=== PATIENT | male | born 1975 | race Caucasian/White ===

== ENCOUNTER 2017-05-26 09:00 | Day surgery (SDC) | payer MEDICARE ==
[~2017-05-26 09:00] MED LIST: ATOR10TA70 PO; GABA300C PO; GLIP5POW MC; LANTUS SUBCUT; METF10002 PO; ONDA4TAB9 PO; PIOG15TA8 PO
[2017-05-26] MEDS ORDERED: LIDOcaine 2% 5ml jelly ONE (09:36)
[2017-05-26] MEDS ORDERED: CLIN-80 PO (13:54)
[2017-05-26] MEDS ORDERED: LEVO500T89 PO (13:55)
== END 2017-05-26 10:39 | disposition home or self-care (01) ==
LOC: WOUND CARE 09:00
PROVIDERS: ATTEND Surgery
DX: E11.621 Type 2 diabetes mellitus with foot ulcer (principal); L97.511 Non-pressure chronic ulcer of other part of right foot limited to breakdown of skin; E87.0 Hyperosmolality and hypernatremia; M87.862 Other osteonecrosis, left tibia; L40.9 Psoriasis, unspecified; E11.610 Type 2 diabetes mellitus with diabetic neuropathic arthropathy; E11.42 Type 2 diabetes mellitus with diabetic polyneuropathy; E46 Unspecified protein-calorie malnutrition; Z86.14 Personal history of Methicillin resistant Staphylococcus aureus infection; Z86.19 Personal history of other infectious and parasitic diseases; Z68.26 Body mass index [BMI] 26.0-26.9, adult; Z85.46 Personal history of malignant neoplasm of prostate; Z89.612 Acquired absence of left leg above knee
CPT/HCPCS: 11042; 36416; 73620; 82948; A6021; A6206; L3260

== ENCOUNTER 2017-06-02 08:49 | Day surgery (SDC) | payer MEDICARE ==
[~2017-06-02 08:49] MED LIST changes: +CLIN-80 PO; -LANTUS SUBCUT; +LEVO500T89 PO
[2017-06-02] MEDS ORDERED: LIDOcaine 2% 5ml jelly ONE (09:27)
[2017-06-07] MEDS ORDERED: ACTOS PO (09:56)
[2017-06-07] MEDS ORDERED: METF500T PO (09:56)
[2017-06-07] MEDS ORDERED: ATOR40TA PO (09:56)
[2017-06-07] MEDS ORDERED: INSU100V12 SQ (09:56)
[2017-06-07] MEDS ORDERED: GLIP5TAB13 PO (09:56)
[2017-06-07] MEDS ORDERED: PIOG15TA8 PO (10:42)
== END 2017-06-02 10:16 | disposition home or self-care (01) ==
LOC: WOUND CARE 08:49
PROVIDERS: ATTEND Surgery
DX: E11.621 Type 2 diabetes mellitus with foot ulcer (principal); L97.512 Non-pressure chronic ulcer of other part of right foot with fat layer exposed; E11.69 Type 2 diabetes mellitus with other specified complication; M86.171 Other acute osteomyelitis, right ankle and foot; E11.610 Type 2 diabetes mellitus with diabetic neuropathic arthropathy; E11.42 Type 2 diabetes mellitus with diabetic polyneuropathy; E87.0 Hyperosmolality and hypernatremia; M87.862 Other osteonecrosis, left tibia; L40.9 Psoriasis, unspecified; E46 Unspecified protein-calorie malnutrition; Z86.14 Personal history of Methicillin resistant Staphylococcus aureus infection; Z86.19 Personal history of other infectious and parasitic diseases; Z68.26 Body mass index [BMI] 26.0-26.9, adult; Z85.46 Personal history of malignant neoplasm of prostate; Z89.612 Acquired absence of left leg above knee
CPT/HCPCS: 11042; 36416; 82948; A6021; A6206; A6212; A6222

== ENCOUNTER 2017-06-08 12:34 | Day surgery (SDC) | payer MEDICARE ==
[2017-06-07 10:04] LABS: BASOPHILS % (AUTO) 0.6 % (0-1); EOSINOPHILS # (AUTO) 0.3 X10'3 (0-0.9); EOSINOPHILS % (AUTO) 4.3 % (0-6); LYMPHOCYTES # (AUTO) 1.8 X10'3 (1.1-4.8); LYMPHOCYTES % (AUTO) 24.5 % (21-51); MEAN CORPUSCULAR HEMOGLOBIN 28.7 PG (27.0-31.0); MEAN CORPUSCULAR HGB CONC 34.5 % (33.0-36.5); MEAN PLATELET VOLUME 8.3 FL (7.4-10.4); MONOCYTES # (AUTO) 0.4 X10'3 (0-0.9); MONOCYTES % (AUTO) 5.6 % (2-12); NEUTROPHILS # (AUTO) 4.7 X10'3 (1.8-7.7); PRE OP HEMATOCRIT 35.1 % (42.0-52.0); PRE OP HEMOGLOBIN 12.1 g/dL (14.0-17.9); PRE OP PLATELET COUNT 294 X10'3 (140-440); RED BLOOD COUNT 4.22 X10'6 (4.70-6.10); RED CELL DISTRIBUTION WIDTH 15.1 % (11.5-14.5)
[2017-06-07 10:06] LABS: CLARITY,URINE SLIGHTLY CLOUDY (Clear); COLOR,URINE STRAW (Yellow); GLUCOSE, URINE NEGATIVE (Neg); KETONES,URINE NEGATIVE (Neg); LEUKOCYTE ESTERASE ,URINE NEGATIVE (Neg); NITRITES, URINE NEGATIVE (Neg); OCCULT BLOOD,URINE NEGATIVE (Neg); PROTEIN,URINE NEGATIVE (Neg); UROBILINOGEN,URINE 0.2 E.U/dL (0.2-1.0)
[2017-06-07 10:21] LABS: UA COLLECTION TYPE CLN CATCH MIDSTREAM
[2017-06-07 10:22] LABS: BACTERIA,URINE NONE SEEN /HPF (Neg); MUCUS STRANDS NONE SEEN /LPF (Neg); RBC,URINE NONE SEEN /HPF (0-2); SQUAMOUS EPITHELIAL CELL,UR FEW /LPF (FEW); WBC,URINE 0-4 /HPF (0-4)
[2017-06-07 10:29] LABS: ALBUMIN 3.5 G/DL (3.4-5.0); ALBUMIN/GLOBULIN RATIO 0.8 (1.1-1.5); ALKALINE PHOSPHATASE 102 IU/L (46-116); BLOOD UREA NITROGEN 16 MG/DL (7-18); BUN/CREATININE RATIO 22.9 (5.4-32.0); CHLORIDE 104 MMOL/L (99-107); HEMOGLOBIN A1C 6.4 % (4.5-6.2); PRE OP ALT 25 U/L (30-65); PRE OP ANION GAP 7 (8-16); PRE OP AST 27 U/L (10-37); PRE OP BILIRUB, TOTAL 0.2 MG/DL (0.0-1.0); PRE OP GLUCOSE 112 MG/DL (70-104); PRE OP POTASSIUM 4.1 MMOL/L (3.4-5.1); PRE OP SODIUM 139 MMOL/L (135-145); TOTAL CARBON DIOXIDE 28.1 MMOL/L (24-32); TOTAL PROTEIN 7.8 G/DL (6.4-8.2); eGFR > 90 ML/MIN
[2017-06-08] VITALS (7 sets, daily range): BP systolic 102–121; BP diastolic 67–74
[~2017-06-08] VITALS: Ht 182.9 cm; Wt 106.6 kg
[~2017-06-08 12:34] MED LIST changes: -ATOR10TA70 PO; +ATOR40TA PO; -CLIN-80 PO; +Cefazolin 2GM/100ML NS IVPB IV ONE; -GLIP5POW MC; +GLIP5TAB13 PO; +INSU100V12 SQ; -LEVO500T89 PO; -METF10002 PO; +METF500T PO; -ONDA4TAB9 PO; +famotidine 20mg tablet PO ONE; +ringers solution, lacted 1,000 ML IV SCH
[2017-06-08] MEDS ORDERED: methylene blue (5mg/ml) 50mg/10ml ampul IV ONE (14:20)
[2017-06-08] MEDS ORDERED: povidone-iodine 10% topical ointment 28.4gm TP ONE (14:20)
[2017-06-08] MEDS ORDERED: BUPIVAcaine/PF 2.5 mg/ml (0.25%) 30ml vial ONE (14:20)
[2017-06-08] MEDS ORDERED: midazolam 2 mg/2 ml injection ONE (14:36)
[2017-06-08] MEDS ORDERED: LIDOcaine 1% 30ml preserv. free vial ONE (14:36)
[2017-06-08] MEDS ORDERED: fentaNYL/PF 50MCG/1 ML 2ML syringe ONE ×2 (14:36→15:08)
[2017-06-08] MEDS ORDERED: propofol inj 20 ML IV ONE (14:53)
[2017-06-08] MEDS ORDERED: LIDOcaine 2% (20mg/ml) 5ml vial ONE (14:53)
[2017-06-08] MEDS ORDERED: ringers solution, lacted 1,000 ML IV SCH (15:13)
[2017-06-08] MEDS ORDERED: ondansetron/PF 4mg/2ml inj IV PRN (15:15)
[2017-06-08] MEDS ORDERED: proCHLORperazine 10 MG/2 ml inj IV PRN (15:15)
[2017-06-08] MEDS ORDERED: morphine 4 MG/ML inj SYRINge IV PRN ×2 (15:15)
[2017-06-08] MEDS ORDERED: meperidine/PF 50mg/ml syringe IV PRN ×3 (15:15)
== END 2017-06-08 16:22 | disposition home or self-care (01) ==
LOC: PAS 12:34
PROVIDERS: ATTEND Surgery
DX: E11.52 Type 2 diabetes mellitus with diabetic peripheral angiopathy with gangrene (principal); I96 Gangrene, not elsewhere classified; M19.90 Unspecified osteoarthritis, unspecified site; E11.42 Type 2 diabetes mellitus with diabetic polyneuropathy; L40.8 Other psoriasis; Z86.14 Personal history of Methicillin resistant Staphylococcus aureus infection; Z79.4 Long term (current) use of insulin; Z85.46 Personal history of malignant neoplasm of prostate; Z89.512 Acquired absence of left leg below knee; Z79.84 Long term (current) use of oral hypoglycemic drugs; Z79.899 Other long term (current) drug therapy; Z98.890 Other specified postprocedural states
CPT/HCPCS: 28820; 36415; 80053; 81001; 82948; 83036; 85025; 93005; A6222; A6446; A6449; J0690; J2001; J2250; J2704; J3010; J3490; J7120; 88305; A7000

== ENCOUNTER 2017-06-16 08:15 | Outpatient (CLI) | payer MEDICARE ==
[~2017-06-16 08:15] MED LIST changes: -Cefazolin 2GM/100ML NS IVPB IV ONE; -famotidine 20mg tablet PO ONE; -ringers solution, lacted 1,000 ML IV SCH
== END 2017-06-16 09:57 | disposition home or self-care (01) ==
LOC: WOUND CARE 08:15 → EDSTATUS 08:30 → WOUND CARE 09:57
PROVIDERS: ATTEND Surgery
DX: T81.89XD Other complications of procedures, not elsewhere classified, subsequent encounter (principal); E11.621 Type 2 diabetes mellitus with foot ulcer; L97.512 Non-pressure chronic ulcer of other part of right foot with fat layer exposed; E11.69 Type 2 diabetes mellitus with other specified complication; M86.171 Other acute osteomyelitis, right ankle and foot; E11.610 Type 2 diabetes mellitus with diabetic neuropathic arthropathy; E11.42 Type 2 diabetes mellitus with diabetic polyneuropathy; E87.0 Hyperosmolality and hypernatremia; M87.862 Other osteonecrosis, left tibia; L40.9 Psoriasis, unspecified; E46 Unspecified protein-calorie malnutrition; Z86.14 Personal history of Methicillin resistant Staphylococcus aureus infection; Z86.19 Personal history of other infectious and parasitic diseases; Z68.26 Body mass index [BMI] 26.0-26.9, adult; Z85.46 Personal history of malignant neoplasm of prostate; Z89.612 Acquired absence of left leg above knee; Y83.8 Other surgical procedures as the cause of abnormal reaction of the patient, or of later complication, without mention of misadventure at the time of the procedure
CPT/HCPCS: 36416; 82948; 99215; A6250

== ENCOUNTER 2017-06-23 08:15 | Outpatient (CLI) | payer MEDICARE ==
[2017-06-23] MEDS ORDERED: LIDOcaine 2% 5ml jelly ONE (09:45)
== END 2017-06-23 10:08 | disposition home or self-care (01) ==
LOC: WOUND CARE 08:15 → EDSTATUS 08:30 → WOUND CARE 10:08
PROVIDERS: ATTEND Surgery
DX: T81.89XD Other complications of procedures, not elsewhere classified, subsequent encounter (principal); E11.621 Type 2 diabetes mellitus with foot ulcer; L97.512 Non-pressure chronic ulcer of other part of right foot with fat layer exposed; E11.69 Type 2 diabetes mellitus with other specified complication; M86.171 Other acute osteomyelitis, right ankle and foot; E11.610 Type 2 diabetes mellitus with diabetic neuropathic arthropathy; E11.42 Type 2 diabetes mellitus with diabetic polyneuropathy; E11.65 Type 2 diabetes mellitus with hyperglycemia; E87.0 Hyperosmolality and hypernatremia; M87.862 Other osteonecrosis, left tibia; L40.9 Psoriasis, unspecified; E46 Unspecified protein-calorie malnutrition; Z86.14 Personal history of Methicillin resistant Staphylococcus aureus infection; Z86.19 Personal history of other infectious and parasitic diseases; Z68.26 Body mass index [BMI] 26.0-26.9, adult; Z85.46 Personal history of malignant neoplasm of prostate; Z89.612 Acquired absence of left leg above knee; Y83.8 Other surgical procedures as the cause of abnormal reaction of the patient, or of later complication, without mention of misadventure at the time of the procedure
CPT/HCPCS: 36416; 82948; 99215; A6250

== ENCOUNTER 2017-06-30 08:31 | Outpatient (CLI) | payer MEDICARE ==
[2017-06-30] MEDS ORDERED: mupirocin 2% ointment 22GM ONE (10:11)
== END 2017-06-30 10:18 | disposition home or self-care (01) ==
LOC: WOUND CARE 08:31
PROVIDERS: ATTEND Surgery
DX: T81.89XD Other complications of procedures, not elsewhere classified, subsequent encounter (principal); E11.621 Type 2 diabetes mellitus with foot ulcer; L97.512 Non-pressure chronic ulcer of other part of right foot with fat layer exposed; E11.69 Type 2 diabetes mellitus with other specified complication; M86.171 Other acute osteomyelitis, right ankle and foot; E11.610 Type 2 diabetes mellitus with diabetic neuropathic arthropathy; E11.42 Type 2 diabetes mellitus with diabetic polyneuropathy; E11.65 Type 2 diabetes mellitus with hyperglycemia; E87.0 Hyperosmolality and hypernatremia; M87.862 Other osteonecrosis, left tibia; L40.9 Psoriasis, unspecified; E46 Unspecified protein-calorie malnutrition; Z86.14 Personal history of Methicillin resistant Staphylococcus aureus infection; Z86.19 Personal history of other infectious and parasitic diseases; Z68.26 Body mass index [BMI] 26.0-26.9, adult; Z85.46 Personal history of malignant neoplasm of prostate; Y83.8 Other surgical procedures as the cause of abnormal reaction of the patient, or of later complication, without mention of misadventure at the time of the procedure
CPT/HCPCS: 36416; 82948; 99214

== ENCOUNTER 2017-08-31 08:07 | Outpatient (CLI) | payer MEDICARE | END 2017-08-31 10:12 | disposition home or self-care (01) | LOC: WOUND CARE 08:07 → EDSTATUS 08:30 → WOUND CARE 10:12 | PROVIDERS: ATTEND Surgery | DX: T81.89XD Other complications of procedures, not elsewhere classified, subsequent encounter (principal); E11.621 Type 2 diabetes mellitus with foot ulcer; L97.511 Non-pressure chronic ulcer of other part of right foot limited to breakdown of skin; E11.69 Type 2 diabetes mellitus with other specified complication; M86.171 Other acute osteomyelitis, right ankle and foot; E11.610 Type 2 diabetes mellitus with diabetic neuropathic arthropathy; E11.42 Type 2 diabetes mellitus with diabetic polyneuropathy; E11.65 Type 2 diabetes mellitus with hyperglycemia; E87.0 Hyperosmolality and hypernatremia; M87.862 Other osteonecrosis, left tibia; L40.9 Psoriasis, unspecified; E46 Unspecified protein-calorie malnutrition; Z86.14 Personal history of Methicillin resistant Staphylococcus aureus infection; Z86.19 Personal history of other infectious and parasitic diseases; Z68.26 Body mass index [BMI] 26.0-26.9, adult; Z85.46 Personal history of malignant neoplasm of prostate; Y83.8 Other surgical procedures as the cause of abnormal reaction of the patient, or of later complication, without mention of misadventure at the time of the procedure | CPT/HCPCS: 82948; 99215 ==

== ENCOUNTER 2022-02-27 13:59 | Outpatient (CLI) | payer MEDICARE ==
[2022-02-27 15:21] LABS: BASOPHILS # (AUTO) 0.1 X10'3 (0-0.2); BASOPHILS % (AUTO) 1.4 % (0-1); EOSINOPHILS # (AUTO) 0.1 X10'3 (0-0.9); EOSINOPHILS % (AUTO) 1.7 % (0-6); LYMPHOCYTES # (AUTO) 1.2 X10'3 (1.1-4.8); LYMPHOCYTES % (AUTO) 20.6 % (21-51); MEAN CORPUSCULAR HEMOGLOBIN 28.9 PG (27.0-31.0); MEAN CORPUSCULAR HGB CONC 34.1 g/dL (33.0-36.5); MEAN CORPUSCULAR VOLUME 84.7 FL (78-98); MEAN PLATELET VOLUME 9.7 FL (7.4-10.4); MONOCYTES # (AUTO) 0.3 X10'3 (0-0.9); MONOCYTES % (AUTO) 5.6 % (2-12); NEUTROPHILS # (AUTO) 4.2 X10'3 (1.8-7.7); NEUTROPHILS % (AUTO) 70.7 % (42-75); PRE OP HEMATOCRIT 39.3 % (42.0-52.0); PRE OP HEMOGLOBIN 13.4 g/dL (14.0-17.9); PRE OP PLATELET COUNT 249 X10'3 (140-440); RED BLOOD COUNT 4.64 X10'6 (4.70-6.10); RED CELL DISTRIBUTION WIDTH 13.7 % (11.5-14.5)
[2022-02-27 15:40] LABS: ALBUMIN/GLOBULIN RATIO 0.7 (1.1-1.5); ALKALINE PHOSPHATASE 115 IU/L (46-116); BLOOD UREA NITROGEN 21 MG/DL (7-18); BUN/CREATININE RATIO 14.7 (5.4-32.0); CALCIUM 8.9 MG/DL (8.5-10.1); CHLORIDE 94 MMOL/L (99-107); CREATININE 1.43 MG/DL (0.60-1.10); PRE OP ALT 23 U/L (30-65); PRE OP ANION GAP 4 (8-16); PRE OP AST 28 U/L (10-37); PRE OP BILIRUB, TOTAL 0.3 MG/DL (0.0-1.0); PRE OP POTASSIUM 4.5 MMOL/L (3.4-5.1); TOTAL PROTEIN 7.1 G/DL (6.4-8.2); eGFR 53 ML/MIN
[2022-02-27 15:52] LABS: PRE OP GLUCOSE 796 MG/DL (70-104); PRE OP SODIUM 129 MMOL/L (135-145)
[2022-02-27] MEDS ORDERED: ATOR80TA PO (16:08)
[2022-02-27] MEDS ORDERED: EMPA10TA PO (16:08)
[2022-02-27] MEDS ORDERED: VITAMIN D (16:08)
[2022-02-27] MEDS ORDERED: INSU100V12 SQ (16:08)
[2022-02-27] MEDS ORDERED: IRON (16:08)
[2022-02-27] MEDS ORDERED: INSU100V11 SQ (16:08)
[2022-02-27] MEDS ORDERED: METF-438 PO (16:08)
== END 2022-02-27 23:59 | disposition home or self-care (01) ==
LOC: LAB 13:59 → EDSTATUS 03-03 07:30
PROVIDERS: ATTEND Orthopaedic Surgery Orthopaedic Trauma
DX: Z01.818 Encounter for other preprocedural examination (principal); R22.42 Localized swelling, mass and lump, left lower limb
CPT/HCPCS: 36415; 71046; 80053; 83036; 85025; 85610; 93005

== ENCOUNTER 2023-03-17 16:40 | Inpatient (IN) | payer MEDICARE, MEDICAID ==
[~2023-03-17] VITALS: Ht 172.7 cm; Wt 81.8 kg
[~2023-03-17 16:40] MED LIST changes: -ATOR40TA PO; +ATOR80TA PO; +EMPA10TA PO; -GABA300C PO; -GLIP5TAB13 PO; +INSU100V11 SQ; +IRON; +METF-438 PO; -METF500T PO; -PIOG15TA8 PO; +VITAMIN D
[2023-03-17 17:57] LABS: BASOPHILS % (AUTO) 0.5 % (0-1); EOSINOPHILS # (AUTO) 0.1 X10'3 (0-0.9); EOSINOPHILS % (AUTO) 1.2 % (0-6); HEMATOCRIT 36.3 % (42.0-52.0); HEMOGLOBIN 12.1 g/dl (14.0-17.9); LYMPHOCYTES # (AUTO) 0.9 X10'3 (1.1-4.8); MEAN CORPUSCULAR HEMOGLOBIN 28.4 PG (27.0-31.0); MEAN CORPUSCULAR HGB CONC 33.3 g/dL (33.0-36.5); MEAN CORPUSCULAR VOLUME 85.3 FL (78-98); MONOCYTES # (AUTO) 0.5 X10'3 (0-0.9); MONOCYTES % (AUTO) 5.6 % (2-12); NEUTROPHILS # (AUTO) 7.3 X10'3 (1.8-7.7); NEUTROPHILS % (AUTO) 82.7 % (42-75); PLATELET COUNT 391 X10'3 (140-440); RED BLOOD COUNT 4.25 X10'6 (4.70-6.10); RED CELL DISTRIBUTION WIDTH 12.9 % (11.5-14.5); WHITE BLOOD COUNT 8.8 X10'3 (4.5-11.0)
[2023-03-17 18:17] LABS: ALBUMIN 1.9 G/DL (3.4-5.0); ANION GAP 8 (8-16); BLOOD UREA NITROGEN 15 MG/DL (7-18); BUN/CREATININE RATIO 12.7 (10.0-20.0); CALCIUM 8.7 MG/DL (8.5-10.1); CHLORIDE 94 MMOL/L (99-107); CREATININE 1.18 MG/DL (0.60-1.10); POTASSIUM 4.1 MMOL/L (3.5-5.1); SODIUM 133 MMOL/L (135-145); TOTAL CARBON DIOXIDE 30.8 MMOL/L (24-32); eCRCL 75 ML/MIN; eGFR 66 ML/MIN
[2023-03-17 18:26] LABS: GLUCOSE 658 MG/DL (70-104)
[2023-03-17] MEDS ORDERED: iohexol 300mg/ml 100ml inj. ONE (22:37)
[2023-03-17] MEDS ORDERED: dextrose 50%-water 50ml dispensing syringe IV PRN ×2 (23:00)
[2023-03-17] MEDS ORDERED: potassium Cl 40MEQ/1/2NS 520ml 520 ML IV PRN (23:00)
[2023-03-17] MEDS ORDERED: potassium Cl 20 mEq SR tablet PO PRN ×2 (23:00)
[2023-03-17] MEDS ORDERED: acetaminophen 325mg tablet PO PRN (23:00)
[2023-03-17] MEDS ORDERED: morphine 2 MG/ML inj. syringe IV PRN ×2 (23:00)
[2023-03-17] MEDS ORDERED: HYDROcodone/acetaminophen 5mg/325mg tablet PO PRN (23:00)
[2023-03-17] MEDS ORDERED: magnesium 2GM in 50ml NS 50 ML IV PRN (23:00)
[2023-03-17] MEDS ORDERED: magnesium 4gm in 100ml NS 100 ML IV PRN (23:00)
[2023-03-17] MEDS ORDERED: glucagon, human recombinant 1mg kit SUBCUT PRN (23:00)
[2023-03-17] MEDS ORDERED: DEXTROSE 15 GM of carb/4 tabs (each vial/BOTTLE has 4 tablets) PO PRN (23:00)
[2023-03-17] MEDS ORDERED: magnesium Cl slow-release 64mg tablet PO PRN (23:00)
[2023-03-17] MEDS ORDERED: mag hydrox/Alum hydrox/simeth 30ml oral suspension PO PRN (23:00)
[2023-03-17] MEDS: normal saline 1000ML IV soln IVB ONE (23:11)
[2023-03-17] MEDS: piperacillin/tazo 3.375gm/50ml 50 ML IV ONE (23:11)
[2023-03-17] MEDS: insulin regular, human 10 units/0.1 ml syringe IV ONE (23:14)
[2023-03-17] MEDS: MESSAGE TO PHARMACY PO ONE (23:14)
[2023-03-17] MEDS: vancomycin/NS 1 GM ADD-VANTAGE 250 ML IV ONE (23:41)
[2023-03-18] MEDS: normal saline 1000ml 1,000 ML IV SCH (01:20)
[2023-03-18] MEDS: insulin regular, human 10 units/0.1 ml syringe IV ONE (01:30)
[2023-03-18] MEDS: TETanus/Pertussis (Acell)/Diphther VAC/PF (Tdap-Adult) 0.5ml syringe IMVAC ONE (01:35)
[2023-03-18 02:43] LABS: D-DIMER 1.02 MG/L FEU (0-0.50)
[2023-03-18] MEDS: piperacillin/tazo 3.375gm/50ml 50 ML IV SCH (03:28)
[2023-03-18 06:25] LABS: BILIRUBIN,URINE NEGATIVE (Neg); CLARITY,URINE CLEAR (Clear); COLOR,URINE YELLOW (Yellow); GLUCOSE, URINE >=1000 mg/dl (Neg); KETONES,URINE TRACE mg/dl (Neg); LEUKOCYTE ESTERASE ,URINE NEGATIVE (Neg); NITRITES, URINE NEGATIVE (Neg); OCCULT BLOOD,URINE MODERATE (Neg); PROTEIN,URINE >=300 mg/dl (Neg)
[2023-03-18 06:38] LABS: UA COLLECTION TYPE CLN CATCH MIDSTREAM
[2023-03-18 06:43] LABS: BACTERIA,URINE FEW /HPF (Neg); COARSE GRANULAR CAST 0-3 /LPF (NEGATIVE); WBC,URINE 0-4 /HPF (0-4)
[2023-03-18 06:47] LABS: SQUAMOUS EPITHELIAL CELL,UR FEW /LPF (FEW); TRANSITIONAL EPI CELLS,URINE FEW /HPF
[2023-03-18 07:58] LABS: BASOPHILS # (AUTO) 0.1 X10'3 (0-0.2); BASOPHILS % (AUTO) 1.1 % (0-1); EOSINOPHILS # (AUTO) 0.1 X10'3 (0-0.9); EOSINOPHILS % (AUTO) 1.2 % (0-6); HEMATOCRIT 24.6 % (42.0-52.0); HEMOGLOBIN 8.2 g/dl (14.0-17.9); LYMPHOCYTES # (AUTO) 1.1 X10'3 (1.1-4.8); LYMPHOCYTES % (AUTO) 17.5 % (21-51); MEAN CORPUSCULAR HEMOGLOBIN 28.2 PG (27.0-31.0); MEAN CORPUSCULAR HGB CONC 33.5 g/dL (33.0-36.5); MEAN CORPUSCULAR VOLUME 84.2 FL (78-98); MONOCYTES # (AUTO) 0.5 X10'3 (0-0.9); MONOCYTES % (AUTO) 7.5 % (2-12); NEUTROPHILS # (AUTO) 4.4 X10'3 (1.8-7.7); NEUTROPHILS % (AUTO) 72.7 % (42-75); PLATELET COUNT 250 X10'3 (140-440); RED BLOOD COUNT 2.92 X10'6 (4.70-6.10); WHITE BLOOD COUNT 6.1 X10'3 (4.5-11.0)
[2023-03-18] MEDS: K and/or MAG REPLACEMENT MC SCH (08:00)
[2023-03-18 08:25] LABS: ALANINE AMINOTRANSFERASE 15 U/L (12-78); ALBUMIN 1.3 G/DL (3.4-5.0); ALBUMIN/GLOBULIN RATIO 0.3 (1.1-1.5); ALKALINE PHOSPHATASE 75 IU/L (46-116); ANION GAP 7 (8-16); ASPARTATE AMINO TRANSFERASE 19 U/L (10-37); BILIRUBIN,TOTAL 0.3 MG/DL (0.1-1.0); BLOOD UREA NITROGEN 12 MG/DL (7-18); BUN/CREATININE RATIO 15.8 (10.0-20.0); C-REACTIVE PROTEIN 9.05 MG/DL (0.0-0.5); CALCIUM 7.1 MG/DL (8.5-10.1); CHLORIDE 109 MMOL/L (99-107); CREATININE 0.76 MG/DL (0.60-1.10); GLUCOSE 233 MG/DL (70-104); MAGNESIUM 1.6 MG/DL (1.5-2.4); POTASSIUM 3.4 MMOL/L (3.5-5.1); SODIUM 144 MMOL/L (135-145); TOTAL CARBON DIOXIDE 28.4 MMOL/L (24-32); TOTAL PROTEIN 5.5 G/DL (6.4-8.2); eCRCL 116 ML/MIN; eGFR > 90 ML/MIN
[2023-03-18] MEDS: heparin, porcine 5000 units/ml vial SQ SCH (08:27)
[2023-03-18] MEDS: vancomycin/NS 1 GM ADD-VANTAGE 250 ML IV SCH (08:27)
[2023-03-18] MEDS: pantoprazole 40mg Tablet.DR PO SCH (08:28)
[2023-03-18 10:31] LABS: HEMOGLOBIN A1C > 12.0 % (4.5-6.2)
[2023-03-18] MEDS ORDERED: glucagon, human recombinant 1mg kit SUBCUT PRN (13:10)
[2023-03-18] MEDS ORDERED: dextrose 50%-water 50ml dispensing syringe IV PRN ×2 (13:10)
[2023-03-18] MEDS ORDERED: DEXTROSE 15 GM of carb/4 tabs (each vial/BOTTLE has 4 tablets) PO PRN ×2 (13:10)
[2023-03-18] MEDS: HYDROcodone/acetaminophen 10/325mg tab PO PRN (13:28)
[2023-03-18] MEDS: MESSAGE TO PHARMACY PO ONE (13:43)
[2023-03-18] MEDS: insulin Lispro (HumaLOG) vial - multi-dose SQ SCH ×2 (14:27→20:28)
[2023-03-18] MEDS: atorvastatin 20mg tablet PO SCH (20:39)
[2023-03-18] MEDS ORDERED: insulin glargine (Lantus) pen - multi-dose SQ SCH ×2 (21:00)
[2023-03-18] MEDS: insulin glargine (Lantus) pen - multi-dose SQ SCH (22:51)
[2023-03-19 06:34] LABS: BASOPHILS # (AUTO) 0.1 X10'3 (0-0.2); BASOPHILS % (AUTO) 1.2 % (0-1); EOSINOPHILS # (AUTO) 0.1 X10'3 (0-0.9); HEMATOCRIT 28.2 % (42.0-52.0); HEMOGLOBIN 9.6 g/dl (14.0-17.9); LYMPHOCYTES # (AUTO) 0.7 X10'3 (1.1-4.8); LYMPHOCYTES % (AUTO) 14.6 % (21-51); MEAN CORPUSCULAR HEMOGLOBIN 28.3 PG (27.0-31.0); MEAN CORPUSCULAR HGB CONC 33.9 g/dL (33.0-36.5); MEAN CORPUSCULAR VOLUME 83.6 FL (78-98); MEAN PLATELET VOLUME 9.3 FL (7.4-10.4); MONOCYTES # (AUTO) 0.3 X10'3 (0-0.9); MONOCYTES % (AUTO) 6.5 % (2-12); NEUTROPHILS # (AUTO) 3.9 X10'3 (1.8-7.7); NEUTROPHILS % (AUTO) 75.7 % (42-75); PLATELET COUNT 294 X10'3 (140-440); RED BLOOD COUNT 3.38 X10'6 (4.70-6.10); RED CELL DISTRIBUTION WIDTH 12.8 % (11.5-14.5); WHITE BLOOD COUNT 5.1 X10'3 (4.5-11.0)
[2023-03-19] MEDS: VANCOMYCIN LEVEL IV ONE (07:55)
[2023-03-19 08:30] LABS: ALANINE AMINOTRANSFERASE 33 U/L (12-78); ALBUMIN 1.4 G/DL (3.4-5.0); ALBUMIN/GLOBULIN RATIO 0.3 (1.1-1.5); ALKALINE PHOSPHATASE 79 IU/L (46-116); ANION GAP 8 (8-16); ASPARTATE AMINO TRANSFERASE 22 U/L (10-37); BILIRUBIN,TOTAL 0.4 MG/DL (0.1-1.0); BLOOD UREA NITROGEN 14 MG/DL (7-18); BUN/CREATININE RATIO 15.7 (10.0-20.0); CALCIUM 7.4 MG/DL (8.5-10.1); CHLORIDE 102 MMOL/L (99-107); CREATININE 0.89 MG/DL (0.60-1.10); GLUCOSE 208 MG/DL (70-104); POTASSIUM 3.8 MMOL/L (3.5-5.1); SODIUM 137 MMOL/L (135-145); TOTAL CARBON DIOXIDE 27.3 MMOL/L (24-32); TOTAL PROTEIN 5.9 G/DL (6.4-8.2); eCRCL 99 ML/MIN; eGFR > 90 ML/MIN
[2023-03-19 08:32] LABS: CHOL/HDL RATIO 5.9 (0.00-4.99); CHOLESTEROL 190 MG/DL (0-200); HDL CHOLESTEROL 32 MG/DL (35-60); MAGNESIUM 1.6 MG/DL (1.5-2.4); TRIGLYCERIDES 105 MG/DL (20-135); VANCOMYCIN,TROUGH 14.2 ug/mL (10.0-20.0)
[2023-03-19 08:38] LABS: LDL CHOLESTEROL 124 MG/DL (50-100)
[2023-03-19 10:00] VITALS: RESP 16
[2023-03-19 11:00] VITALS: BP 144/84; PULSE 110; RESP 34; TEMP 98.7; O2SAT 96
[2023-03-19 15:04] VITALS: BP 128/69; PULSE 113; RESP 30; TEMP 100.1; O2SAT 95
[2023-03-19 18:00] VITALS: BP 142/75; PULSE 113; RESP 20; TEMP 98.7; O2SAT 96
[2023-03-19] MEDS: VANCOmycin 1250MG/NS 250ml Bag 250 ML IV SCH (19:14)
[2023-03-19] MEDS: guaiFENesin/DM 10ml UD oral syrup PO PRN (20:05)
[2023-03-19 22:00] VITALS: BP 148/82; PULSE 123; RESP 22; TEMP 97.9; O2SAT 96
[2023-03-19] MEDS: ondansetron/PF 4mg/2ml inj IV PRN (23:45)
[2023-03-20] VITALS (7 sets, daily range): BP systolic 122–140; BP diastolic 58–73; PULSE 60–118; RESP 16–32; TEMP 97.3–99.6; O2SAT 92–98
[2023-03-20 07:09] LABS: BASOPHILS % (AUTO) 0.7 % (0-1); EOSINOPHILS % (AUTO) 0.6 % (0-6); HEMATOCRIT 27.2 % (42.0-52.0); HEMOGLOBIN 9.3 g/dl (14.0-17.9); LYMPHOCYTES # (AUTO) 0.6 X10'3 (1.1-4.8); LYMPHOCYTES % (AUTO) 10.3 % (21-51); MEAN CORPUSCULAR HEMOGLOBIN 28.6 PG (27.0-31.0); MEAN CORPUSCULAR HGB CONC 34.1 g/dL (33.0-36.5); MEAN CORPUSCULAR VOLUME 83.8 FL (78-98); MEAN PLATELET VOLUME 8.9 FL (7.4-10.4); MONOCYTES # (AUTO) 0.5 X10'3 (0-0.9); MONOCYTES % (AUTO) 8.2 % (2-12); NEUTROPHILS # (AUTO) 4.8 X10'3 (1.8-7.7); NEUTROPHILS % (AUTO) 80.2 % (42-75); PLATELET COUNT 252 X10'3 (140-440); RED BLOOD COUNT 3.25 X10'6 (4.70-6.10); RED CELL DISTRIBUTION WIDTH 12.9 % (11.5-14.5)
[2023-03-20 07:48] LABS: ALANINE AMINOTRANSFERASE 20 U/L (12-78); ALBUMIN 1.3 G/DL (3.4-5.0); ALBUMIN/GLOBULIN RATIO 0.3 (1.1-1.5); ALKALINE PHOSPHATASE 89 IU/L (46-116); ANION GAP 8 (8-16); ASPARTATE AMINO TRANSFERASE 31 U/L (10-37); BILIRUBIN,TOTAL 0.3 MG/DL (0.1-1.0); BLOOD UREA NITROGEN 13 MG/DL (7-18); CALCIUM 7.1 MG/DL (8.5-10.1); CHLORIDE 100 MMOL/L (99-107); GLUCOSE 259 MG/DL (70-104); MAGNESIUM 1.6 MG/DL (1.5-2.4); SODIUM 136 MMOL/L (135-145); TOTAL CARBON DIOXIDE 27.7 MMOL/L (24-32); eCRCL 88 ML/MIN; eGFR 80 ML/MIN
[2023-03-20] MEDS: azithromycin 250mg tablet PO SCH (11:51)
[2023-03-20] MEDS: DEXTROSE 15 GM of carb/4 tabs (each vial/BOTTLE has 4 tablets) PO PRN (17:26)
[2023-03-20] MEDS: magnesium hydroxide 30ml (MOM) UD suspension PO PRN (17:28)
[2023-03-21 02:00] VITALS: BP 111/60; PULSE 66; RESP 18; TEMP 97.8; O2SAT 92
[2023-03-21 06:00] VITALS: BP 131/85; PULSE 106; RESP 20; TEMP 98; O2SAT 93
[2023-03-21 06:40] LABS: BASOPHILS % (AUTO) 0.9 % (0-1); EOSINOPHILS # (AUTO) 0.1 X10'3 (0-0.9); EOSINOPHILS % (AUTO) 1.6 % (0-6); HEMATOCRIT 26.5 % (42.0-52.0); LYMPHOCYTES # (AUTO) 0.8 X10'3 (1.1-4.8); LYMPHOCYTES % (AUTO) 16.5 % (21-51); MEAN CORPUSCULAR HEMOGLOBIN 28.3 PG (27.0-31.0); MEAN CORPUSCULAR VOLUME 83.1 FL (78-98); MEAN PLATELET VOLUME 9.5 FL (7.4-10.4); MONOCYTES # (AUTO) 0.5 X10'3 (0-0.9); NEUTROPHILS # (AUTO) 3.4 X10'3 (1.8-7.7); PLATELET COUNT 248 X10'3 (140-440); RED BLOOD COUNT 3.18 X10'6 (4.70-6.10); RED CELL DISTRIBUTION WIDTH 12.9 % (11.5-14.5); WHITE BLOOD COUNT 4.9 X10'3 (4.5-11.0)
[2023-03-21] MEDS: MESSAGE TO PHARMACY PO ONE ×2 (07:28→18:01)
[2023-03-21] MEDS: VANCOMYCIN LEVEL IV ONE (07:47)
[2023-03-21 08:19] LABS: ALANINE AMINOTRANSFERASE 24 U/L (12-78); ALBUMIN 1.8 G/DL (3.4-5.0); ALBUMIN/GLOBULIN RATIO 0.4 (1.1-1.5); ALKALINE PHOSPHATASE 99 IU/L (46-116); ANION GAP -1 (8-16); ASPARTATE AMINO TRANSFERASE 39 U/L (10-37); BILIRUBIN,TOTAL 0.2 MG/DL (0.1-1.0); BLOOD UREA NITROGEN 20 MG/DL (7-18); BUN/CREATININE RATIO 17.2 (10.0-20.0); CALCIUM 8.2 MG/DL (8.5-10.1); CHLORIDE 105 MMOL/L (99-107); CREATININE 1.16 MG/DL (0.60-1.10); GLUCOSE 253 MG/DL (70-104); MAGNESIUM 2.4 MG/DL (1.5-2.4); POTASSIUM 3.8 MMOL/L (3.5-5.1); SODIUM 141 MMOL/L (135-145); TOTAL CARBON DIOXIDE 37.2 MMOL/L (24-32); TOTAL PROTEIN 6.6 G/DL (6.4-8.2); VANCOMYCIN,TROUGH 23.2 ug/mL (10.0-20.0); eCRCL 76 ML/MIN; eGFR 67 ML/MIN
[2023-03-21 13:10] VITALS: BP 124/57; PULSE 109; RESP 24; TEMP 99.5; O2SAT 95
[2023-03-21] MEDS: normal saline 1000ml 1,000 ML IV ONE (14:25)
[2023-03-21] MEDS: normal saline 1000ml 1,000 ML IV SCH (14:25)
[2023-03-21] MEDS ORDERED: iohexol 350MG/ML 100ml bottle IV ONE (14:50)
[2023-03-21 18:00] VITALS: BP 159/66; PULSE 73; RESP 20; TEMP 99.4; O2SAT 98
[2023-03-21] MEDS: vancomycin/NS 1 GM ADD-VANTAGE 250 ML IV SCH (19:19)
[2023-03-21 22:00] VITALS: BP 133/66; PULSE 101; RESP 21; TEMP 98.4; O2SAT 97
[2023-03-22] VITALS (7 sets, daily range): BP systolic 109–162; BP diastolic 67–101; PULSE 56–115; RESP 12–22; TEMP 97.7–100.9; O2SAT 91–96
[2023-03-22] MEDS: dexamethasone 4mg tablet PO SCH (16:12)
[2023-03-22 17:10] LABS: HEMOGLOBIN 9.7 g/dl (14.0-17.9)
[2023-03-22 17:11] LABS: BASOPHILS % (AUTO) 0.7 % (0-1); EOSINOPHILS % (AUTO) 0.4 % (0-6); HEMATOCRIT 28.5 % (42.0-52.0); LYMPHOCYTES # (AUTO) 0.8 X10'3 (1.1-4.8); MEAN CORPUSCULAR HEMOGLOBIN 28.5 PG (27.0-31.0); MEAN CORPUSCULAR VOLUME 83.9 FL (78-98); MEAN PLATELET VOLUME 9.2 FL (7.4-10.4); MONOCYTES # (AUTO) 0.4 X10'3 (0-0.9); MONOCYTES % (AUTO) 8.6 % (2-12); NEUTROPHILS # (AUTO) 3.6 X10'3 (1.8-7.7); NEUTROPHILS % (AUTO) 74.3 % (42-75); PLATELET COUNT 282 X10'3 (140-440); RED CELL DISTRIBUTION WIDTH 13.2 % (11.5-14.5); WHITE BLOOD COUNT 4.8 X10'3 (4.5-11.0)
[2023-03-22 17:18] LABS: D-DIMER 1.35 MG/L FEU (0-0.50)
[2023-03-22 17:22] LABS: ALANINE AMINOTRANSFERASE 25 U/L (12-78); ALBUMIN 1.3 G/DL (3.4-5.0); ALBUMIN/GLOBULIN RATIO 0.3 (1.1-1.5); ALKALINE PHOSPHATASE 90 IU/L (46-116); ANION GAP 6 (8-16); ASPARTATE AMINO TRANSFERASE 48 U/L (10-37); BILIRUBIN,TOTAL 0.4 MG/DL (0.1-1.0); BLOOD UREA NITROGEN 19 MG/DL (7-18); BUN/CREATININE RATIO 10.3 (10.0-20.0); CALCIUM 7.4 MG/DL (8.5-10.1); CHLORIDE 104 MMOL/L (99-107); CREATININE 1.84 MG/DL (0.60-1.10); GLUCOSE 107 MG/DL (70-104); SODIUM 140 MMOL/L (135-145); TOTAL CARBON DIOXIDE 29.6 MMOL/L (24-32); TOTAL PROTEIN 6.3 G/DL (6.4-8.2); eCRCL 48 ML/MIN; eGFR 40 ML/MIN
[2023-03-23] VITALS (8 sets, daily range): BP systolic 139–153; BP diastolic 91–98; PULSE 64–120; RESP 16–24; TEMP 97.5–98.9; O2SAT 93–99
[2023-03-23 07:51] LABS: D-DIMER 1.37 MG/L FEU (0-0.50)
[2023-03-23] MEDS: VANCOMYCIN LEVEL IV ONE (07:51)
[2023-03-23 07:56] LABS: C-REACTIVE PROTEIN 10.12 MG/DL (0.0-0.5); LACTATE DEHYDROGENASE 267 U/L (85-227)
[2023-03-23 08:55] LABS: VANCOMYCIN,TROUGH 41.3 ug/mL (10.0-20.0)
[2023-03-23] MEDS ORDERED: VANCOMYCIN 750MG IV in NS 250 ML IV SCH (09:00)
[2023-03-23] MEDS: DEXAMETHASONE 6 MG TABLET PO SCH (09:51)
[2023-03-23 10:39] LABS: ALBUMIN 1.3 G/DL (3.4-5.0); ANION GAP 14 (8-16); BLOOD UREA NITROGEN 28 MG/DL (7-18); BUN/CREATININE RATIO 12.9 (10.0-20.0); CALCIUM 7.4 MG/DL (8.5-10.1); CHLORIDE 101 MMOL/L (99-107); CREATININE 2.17 MG/DL (0.60-1.10); GLUCOSE 238 MG/DL (70-104); POTASSIUM 4.5 MMOL/L (3.5-5.1); SODIUM 138 MMOL/L (135-145); TOTAL CARBON DIOXIDE 23.1 MMOL/L (24-32); eCRCL 41 ML/MIN; eGFR 33 ML/MIN
[2023-03-23 10:39] LABS: BASOPHILS % (AUTO) 0.7 % (0-1); EOSINOPHILS % (AUTO) 0 % (0-6); HEMATOCRIT 31.6 % (42.0-52.0); HEMOGLOBIN 10.5 g/dl (14.0-17.9); LYMPHOCYTES # (AUTO) 0.5 X10'3 (1.1-4.8); LYMPHOCYTES % (AUTO) 10.7 % (21-51); MEAN CORPUSCULAR HEMOGLOBIN 27.9 PG (27.0-31.0); MEAN CORPUSCULAR HGB CONC 33.2 g/dL (33.0-36.5); MEAN CORPUSCULAR VOLUME 84.2 FL (78-98); MEAN PLATELET VOLUME 9.1 FL (7.4-10.4); MONOCYTES # (AUTO) 0.2 X10'3 (0-0.9); MONOCYTES % (AUTO) 5.1 % (2-12); NEUTROPHILS # (AUTO) 3.6 X10'3 (1.8-7.7); NEUTROPHILS % (AUTO) 83.5 % (42-75); PLATELET COUNT 319 X10'3 (140-440); RED BLOOD COUNT 3.76 X10'6 (4.70-6.10); RED CELL DISTRIBUTION WIDTH 12.9 % (11.5-14.5); WHITE BLOOD COUNT 4.3 X10'3 (4.5-11.0)
[2023-03-23] MEDS: JUVEN Smoothie Arginine/Glut./Ca2+Bmb (Juven 19.3pkt) 240ml cup PO SCH (17:30)
[2023-03-23] MEDS: ascorbic acid 500mg tablet PO SCH (19:57)
[2023-03-23] MEDS: zinc sulfate 220mg capsule PO SCH (21:52)
[2023-03-24 06:42] VITALS: BP 177/95; PULSE 77; RESP 20; TEMP 97.6; O2SAT 94
[2023-03-24] MEDS: VANCOMYCIN LEVEL IJ ONE (07:06)
[2023-03-24 07:29] LABS: D-DIMER 1.24 MG/L FEU (0-0.50)
[2023-03-24 07:31] LABS: C-REACTIVE PROTEIN 5.39 MG/DL (0.0-0.5); VANCOMYCIN,RANDOM 26.8 ug/mL (20.0-30.0)
[2023-03-24] MEDS ORDERED: multi-vitamin w/minerals & ferrous gluconate 9 MG/15 ML oral LIQUID PO SCH (08:00)
[2023-03-24 08:23] VITALS: RESP 20; O2SAT 94
[2023-03-24 10:00] VITALS: BP 149/98; PULSE 95; RESP 20; TEMP 97.5; O2SAT 99
[2023-03-24] MEDS: REMDESIVIR INJ (loading dose) 200 MG in normal saline 100ml IV soln 100 ML IV ONE (11:51)
[2023-03-24] MEDS: benzonatate 100mg capsule PO PRN (13:48)
[2023-03-24] MEDS: heparin, porcine 5000 units/ml vial SQ SCH (17:19)
[2023-03-24 19:30] VITALS: RESP 20; O2SAT 94
[2023-03-24] MEDS ORDERED: VANCOMYCIN LEVEL IJ ONE (20:30)
[2023-03-25 06:00] VITALS: BP 126/91; PULSE 93; RESP 18; TEMP 98.2
[2023-03-25] MEDS ORDERED: VANCOMYCIN LEVEL IJ ONE (07:00)
[2023-03-25] MEDS: REMDESIVIR 100MG/NS 100ML ADV 100 ML IV SCH (07:33)
[2023-03-25] MEDS: DEXAMETHASONE 6 MG TABLET PO SCH (07:34)
[2023-03-25] MEDS: MULTIVIT-MIN/FERROUS GLUCONATE 9 MG/15 ML LIQUID PO SCH (07:35)
[2023-03-25 08:01] LABS: BASOPHILS % (AUTO) 0.3 % (0-1); EOSINOPHILS % (AUTO) 0.2 % (0-6); HEMATOCRIT 31.6 % (42.0-52.0); HEMOGLOBIN 10.5 g/dl (14.0-17.9); LYMPHOCYTES # (AUTO) 1.4 X10'3 (1.1-4.8); LYMPHOCYTES % (AUTO) 17.9 % (21-51); MEAN CORPUSCULAR HEMOGLOBIN 27.9 PG (27.0-31.0); MEAN CORPUSCULAR HGB CONC 33.3 g/dL (33.0-36.5); MEAN CORPUSCULAR VOLUME 83.7 FL (78-98); MEAN PLATELET VOLUME 8.5 FL (7.4-10.4); MONOCYTES # (AUTO) 0.6 X10'3 (0-0.9); MONOCYTES % (AUTO) 8.5 % (2-12); NEUTROPHILS # (AUTO) 5.6 X10'3 (1.8-7.7); NEUTROPHILS % (AUTO) 73.1 % (42-75); PLATELET COUNT 357 X10'3 (140-440); RED BLOOD COUNT 3.78 X10'6 (4.70-6.10); RED CELL DISTRIBUTION WIDTH 13.1 % (11.5-14.5); WHITE BLOOD COUNT 7.6 X10'3 (4.5-11.0)
[2023-03-25 08:06] LABS: D-DIMER 1.36 MG/L FEU (0-0.50)
[2023-03-25 08:15] LABS: ALANINE AMINOTRANSFERASE 20 U/L (12-78); ALBUMIN 1.3 G/DL (3.4-5.0); ALBUMIN/GLOBULIN RATIO 0.3 (1.1-1.5); ALKALINE PHOSPHATASE 73 IU/L (46-116); ANION GAP 7 (8-16); ASPARTATE AMINO TRANSFERASE 48 U/L (10-37); BILIRUBIN,TOTAL 0.2 MG/DL (0.1-1.0); BLOOD UREA NITROGEN 49 MG/DL (7-18); BUN/CREATININE RATIO 25.1 (10.0-20.0); C-REACTIVE PROTEIN 3.11 MG/DL (0.0-0.5); CALCIUM 7.5 MG/DL (8.5-10.1); CHLORIDE 108 MMOL/L (99-107); CREATININE 1.95 MG/DL (0.60-1.10); GLUCOSE 110 MG/DL (70-104); SODIUM 141 MMOL/L (135-145); TOTAL CARBON DIOXIDE 26.5 MMOL/L (24-32); TOTAL PROTEIN 5.9 G/DL (6.4-8.2); VANCOMYCIN,RANDOM 19.5 ug/mL (20.0-30.0); eCRCL 45 ML/MIN; eGFR 37 ML/MIN
[2023-03-25 08:30] LABS: LACTATE DEHYDROGENASE 301 U/L (85-227); POTASSIUM 4.2 MMOL/L (3.5-5.1)
[2023-03-25 09:00] VITALS: RESP 18; O2SAT 93
[2023-03-25 10:00] VITALS: BP 146/96; PULSE 89; RESP 20; TEMP 98.7; O2SAT 93
[2023-03-25] MEDS: benzonatate 100mg capsule PO SCH (11:16)
[2023-03-25 18:00] VITALS: BP 142/91; PULSE 91; RESP 18; TEMP 98; O2SAT 95
[2023-03-25 19:00] VITALS: RESP 18; O2SAT 95
[2023-03-25 22:00] VITALS: BP 152/99; PULSE 92; RESP 18; TEMP 98.7; O2SAT 97
[2023-03-26 06:54] LABS: BASOPHILS % (AUTO) 0.2 % (0-1); EOSINOPHILS % (AUTO) 0.2 % (0-6); HEMATOCRIT 30.6 % (42.0-52.0); HEMOGLOBIN 10.3 g/dl (14.0-17.9); LYMPHOCYTES # (AUTO) 1.3 X10'3 (1.1-4.8); MEAN CORPUSCULAR HEMOGLOBIN 28.1 PG (27.0-31.0); MEAN CORPUSCULAR HGB CONC 33.7 g/dL (33.0-36.5); MEAN CORPUSCULAR VOLUME 83.4 FL (78-98); MONOCYTES # (AUTO) 0.6 X10'3 (0-0.9); MONOCYTES % (AUTO) 8.2 % (2-12); NEUTROPHILS # (AUTO) 5.6 X10'3 (1.8-7.7); NEUTROPHILS % (AUTO) 74.4 % (42-75); PLATELET COUNT 370 X10'3 (140-440); RED BLOOD COUNT 3.67 X10'6 (4.70-6.10); RED CELL DISTRIBUTION WIDTH 13.3 % (11.5-14.5); WHITE BLOOD COUNT 7.5 X10'3 (4.5-11.0)
[2023-03-26 07:06] LABS: D-DIMER 2.05 MG/L FEU (0-0.50)
[2023-03-26 07:22] LABS: ALANINE AMINOTRANSFERASE 32 U/L (12-78); ALBUMIN 1.4 G/DL (3.4-5.0); ALBUMIN/GLOBULIN RATIO 0.3 (1.1-1.5); ALKALINE PHOSPHATASE 76 IU/L (46-116); ANION GAP 6 (8-16); ASPARTATE AMINO TRANSFERASE 45 U/L (10-37); BILIRUBIN,TOTAL 0.2 MG/DL (0.1-1.0); BLOOD UREA NITROGEN 55 MG/DL (7-18); BUN/CREATININE RATIO 26.8 (10.0-20.0); C-REACTIVE PROTEIN 2.42 MG/DL (0.0-0.5); CHLORIDE 104 MMOL/L (99-107); CREATININE 2.05 MG/DL (0.60-1.10); GLUCOSE 126 MG/DL (70-104); LACTATE DEHYDROGENASE 250 U/L (85-227); POTASSIUM 4.3 MMOL/L (3.5-5.1); SODIUM 139 MMOL/L (135-145); TOTAL CARBON DIOXIDE 28.7 MMOL/L (24-32); TOTAL PROTEIN 6.2 G/DL (6.4-8.2); eCRCL 43 ML/MIN; eGFR 35 ML/MIN
[2023-03-26 07:34] LABS: CALCIUM 7.6 MG/DL (8.5-10.1)
[2023-03-26 08:00] VITALS: RESP 16; O2SAT 94
[2023-03-26] MEDS: lisinopril 10 MG tablet PO ONE (08:10)
[2023-03-26 18:00] VITALS: BP 136/96; PULSE 96; RESP 18; TEMP 98.1; O2SAT 95
[2023-03-26 20:00] VITALS: RESP 18; O2SAT 95
[2023-03-27 06:30] VITALS: BP 159/99; PULSE 93; RESP 18; TEMP 97.9; O2SAT 95
[2023-03-27 07:16] LABS: BASOPHILS % (AUTO) 0.2 % (0-1); EOSINOPHILS # (AUTO) 0.1 X10'3 (0-0.9); EOSINOPHILS % (AUTO) 0.7 % (0-6); HEMOGLOBIN 10.1 g/dl (14.0-17.9); LYMPHOCYTES # (AUTO) 1.3 X10'3 (1.1-4.8); LYMPHOCYTES % (AUTO) 16.9 % (21-51); MEAN CORPUSCULAR HEMOGLOBIN 27.9 PG (27.0-31.0); MEAN CORPUSCULAR HGB CONC 33.8 g/dL (33.0-36.5); MEAN CORPUSCULAR VOLUME 82.7 FL (78-98); MEAN PLATELET VOLUME 8.1 FL (7.4-10.4); MONOCYTES # (AUTO) 0.6 X10'3 (0-0.9); MONOCYTES % (AUTO) 7.5 % (2-12); NEUTROPHILS # (AUTO) 5.6 X10'3 (1.8-7.7); NEUTROPHILS % (AUTO) 74.7 % (42-75); PLATELET COUNT 379 X10'3 (140-440); RED BLOOD COUNT 3.62 X10'6 (4.70-6.10); RED CELL DISTRIBUTION WIDTH 13.4 % (11.5-14.5); WHITE BLOOD COUNT 7.5 X10'3 (4.5-11.0)
[2023-03-27 07:25] LABS: D-DIMER 2.09 MG/L FEU (0-0.50)
[2023-03-27 07:50] LABS: ALANINE AMINOTRANSFERASE 32 U/L (12-78); ALBUMIN 1.5 G/DL (3.4-5.0); ALBUMIN/GLOBULIN RATIO 0.3 (1.1-1.5); ALKALINE PHOSPHATASE 77 IU/L (46-116); ANION GAP 7 (8-16); ASPARTATE AMINO TRANSFERASE 37 U/L (10-37); BILIRUBIN,TOTAL 0.2 MG/DL (0.1-1.0); BLOOD UREA NITROGEN 61 MG/DL (7-18); BUN/CREATININE RATIO 30.8 (10.0-20.0); CALCIUM 7.8 MG/DL (8.5-10.1); CHLORIDE 103 MMOL/L (99-107); CREATININE 1.98 MG/DL (0.60-1.10); GLUCOSE 193 MG/DL (70-104); SODIUM 137 MMOL/L (135-145); TOTAL CARBON DIOXIDE 27.2 MMOL/L (24-32); eCRCL 45 ML/MIN; eGFR 36 ML/MIN
[2023-03-27 08:00] VITALS: RESP 18; O2SAT 95
[2023-03-27 08:45] LABS: C-REACTIVE PROTEIN 2.04 MG/DL (0.0-0.5)
[2023-03-27 09:02] LABS: LACTATE DEHYDROGENASE 247 U/L (85-227)
[2023-03-27 09:53] VITALS: BP 149/97; PULSE 92; RESP 18; TEMP 98.1; O2SAT 95
[2023-03-27 20:00] VITALS: RESP 16; O2SAT 96
[2023-03-27 22:00] VITALS: BP 153/104; PULSE 93; RESP 20; TEMP 97.7; O2SAT 94
[2023-03-28 06:00] VITALS: BP 150/91; PULSE 90; RESP 20; TEMP 97.6; O2SAT 94
[2023-03-28 06:15] LABS: BASOPHILS % (AUTO) 0.2 % (0-1); EOSINOPHILS % (AUTO) 0.2 % (0-6); HEMATOCRIT 29.9 % (42.0-52.0); HEMOGLOBIN 10.2 g/dl (14.0-17.9); LYMPHOCYTES # (AUTO) 0.8 X10'3 (1.1-4.8); LYMPHOCYTES % (AUTO) 10.9 % (21-51); MEAN CORPUSCULAR HEMOGLOBIN 28.4 PG (27.0-31.0); MEAN CORPUSCULAR HGB CONC 34.3 g/dL (33.0-36.5); MEAN CORPUSCULAR VOLUME 82.9 FL (78-98); MEAN PLATELET VOLUME 8.2 FL (7.4-10.4); MONOCYTES # (AUTO) 0.5 X10'3 (0-0.9); MONOCYTES % (AUTO) 6.5 % (2-12); NEUTROPHILS # (AUTO) 6.1 X10'3 (1.8-7.7); NEUTROPHILS % (AUTO) 82.2 % (42-75); PLATELET COUNT 417 X10'3 (140-440); RED BLOOD COUNT 3.61 X10'6 (4.70-6.10); RED CELL DISTRIBUTION WIDTH 13.4 % (11.5-14.5); WHITE BLOOD COUNT 7.5 X10'3 (4.5-11.0)
[2023-03-28 06:35] LABS: ALBUMIN 1.5 G/DL (3.4-5.0); ANION GAP 5 (8-16); BLOOD UREA NITROGEN 57 MG/DL (7-18); BUN/CREATININE RATIO 31.1 (10.0-20.0); CALCIUM 7.9 MG/DL (8.5-10.1); CHLORIDE 103 MMOL/L (99-107); CREATININE 1.83 MG/DL (0.60-1.10); GLUCOSE 213 MG/DL (70-104); POTASSIUM 4.4 MMOL/L (3.5-5.1); SODIUM 136 MMOL/L (135-145); TOTAL CARBON DIOXIDE 27.7 MMOL/L (24-32); eCRCL 48 ML/MIN; eGFR 40 ML/MIN
[2023-03-28 10:07] VITALS: BP 159/101; PULSE 93; RESP 16; TEMP 97.9; O2SAT 96
[2023-03-28 18:00] VITALS: BP 146/84; PULSE 93; RESP 20; TEMP 98; O2SAT 95
[2023-03-28 20:00] VITALS: RESP 20; O2SAT 95
[2023-03-28 22:00] VITALS: BP 158/103; PULSE 89; RESP 23; TEMP 97.9; O2SAT 96
[2023-03-29 06:00] VITALS: BP 153/94; PULSE 90; RESP 23; TEMP 97.8; O2SAT 96
[2023-03-29 08:48] LABS: BASOPHILS % (AUTO) 0.2 % (0-1); EOSINOPHILS # (AUTO) 0.1 X10'3 (0-0.9); EOSINOPHILS % (AUTO) 1.3 % (0-6); HEMOGLOBIN 9.9 g/dl (14.0-17.9); LYMPHOCYTES # (AUTO) 1.4 X10'3 (1.1-4.8); LYMPHOCYTES % (AUTO) 15.7 % (21-51); MEAN CORPUSCULAR HEMOGLOBIN 27.5 PG (27.0-31.0); MEAN CORPUSCULAR HGB CONC 33.1 g/dL (33.0-36.5); MEAN CORPUSCULAR VOLUME 83.3 FL (78-98); MEAN PLATELET VOLUME 8.3 FL (7.4-10.4); MONOCYTES # (AUTO) 0.7 X10'3 (0-0.9); MONOCYTES % (AUTO) 7.4 % (2-12); NEUTROPHILS # (AUTO) 6.8 X10'3 (1.8-7.7); NEUTROPHILS % (AUTO) 75.4 % (42-75); PLATELET COUNT 453 X10'3 (140-440); RED CELL DISTRIBUTION WIDTH 13.4 % (11.5-14.5)
[2023-03-29 09:02] LABS: ALBUMIN 1.6 G/DL (3.4-5.0); ANION GAP 4 (8-16); BLOOD UREA NITROGEN 52 MG/DL (7-18); BUN/CREATININE RATIO 31.7 (10.0-20.0); CALCIUM 7.5 MG/DL (8.5-10.1); CHLORIDE 105 MMOL/L (99-107); CREATININE 1.64 MG/DL (0.60-1.10); GLUCOSE 153 MG/DL (70-104); SODIUM 140 MMOL/L (135-145); TOTAL CARBON DIOXIDE 30.7 MMOL/L (24-32); eCRCL 54 ML/MIN; eGFR 45 ML/MIN
[2023-03-29 10:00] VITALS: BP 148/84; PULSE 89; RESP 19; TEMP 98; O2SAT 96
[2023-03-29 18:00] VITALS: BP 143/85; PULSE 81; RESP 20; TEMP 98.7; O2SAT 96
[2023-03-29 22:00] VITALS: BP 150/88; PULSE 88; RESP 16; TEMP 97.7; O2SAT 96
[2023-03-30 06:00] VITALS: BP 153/93; PULSE 91; RESP 16; TEMP 97.8; O2SAT 95
[2023-03-30 10:00] VITALS: BP 145/86; PULSE 89; RESP 18; TEMP 98.7; O2SAT 95
[2023-03-30 18:00] VITALS: BP 154/91; PULSE 94; RESP 16; TEMP 97.7; O2SAT 96
[2023-03-30 22:00] VITALS: BP 145/88; PULSE 94; RESP 18; TEMP 97.3; O2SAT 96
[2023-03-31 06:54] VITALS: BP 160/103; PULSE 84; RESP 24; TEMP 97.8; O2SAT 97
[2023-03-31 08:00] VITALS: RESP 17; O2SAT 96
[2023-03-31 10:00] VITALS: BP 141/70; PULSE 71; RESP 16; TEMP 98.3; O2SAT 98
[2023-03-31 10:19] LABS: BASOPHILS % (AUTO) 0.2 % (0-1); EOSINOPHILS # (AUTO) 0.3 X10'3 (0-0.9); EOSINOPHILS % (AUTO) 2.3 % (0-6); LYMPHOCYTES # (AUTO) 1.6 X10'3 (1.1-4.8); LYMPHOCYTES % (AUTO) 14.7 % (21-51); MEAN CORPUSCULAR HEMOGLOBIN 27.6 PG (27.0-31.0); MEAN CORPUSCULAR HGB CONC 32.2 g/dL (33.0-36.5); MEAN CORPUSCULAR VOLUME 85.7 FL (78-98); MEAN PLATELET VOLUME 8.3 FL (7.4-10.4); MONOCYTES # (AUTO) 0.9 X10'3 (0-0.9); MONOCYTES % (AUTO) 7.8 % (2-12); NEUTROPHILS # (AUTO) 8.4 X10'3 (1.8-7.7); PLATELET COUNT 486 X10'3 (140-440); RED BLOOD COUNT 3.62 X10'6 (4.70-6.10); WHITE BLOOD COUNT 11.2 X10'3 (4.5-11.0)
[2023-03-31 10:52] LABS: D-DIMER 1.39 MG/L FEU (0-0.50); PROTHROMBIN TIME 10.9 SECONDS (9.0-12.0)
[2023-03-31 11:09] LABS: ALANINE AMINOTRANSFERASE 39 U/L (12-78); ALBUMIN 1.6 G/DL (3.4-5.0); ALBUMIN/GLOBULIN RATIO 0.4 (1.1-1.5); ALKALINE PHOSPHATASE 67 IU/L (46-116); ANION GAP 8 (8-16); ASPARTATE AMINO TRANSFERASE 32 U/L (10-37); BILIRUBIN,TOTAL 0.2 MG/DL (0.1-1.0); BLOOD UREA NITROGEN 50 MG/DL (7-18); BUN/CREATININE RATIO 31.6 (10.0-20.0); CALCIUM 8.3 MG/DL (8.5-10.1); CHLORIDE 106 MMOL/L (99-107); CREATININE 1.58 MG/DL (0.60-1.10); GLUCOSE 167 MG/DL (70-104); POTASSIUM 4.5 MMOL/L (3.5-5.1); SODIUM 141 MMOL/L (135-145); TOTAL CARBON DIOXIDE 27.2 MMOL/L (24-32); TOTAL PROTEIN 5.9 G/DL (6.4-8.2); eCRCL 56 ML/MIN; eGFR 47 ML/MIN
== END 2023-03-31 13:50 | DRG 871 ==
LOC: ER 16:41 → ED HOLD 23:08 → EDBEDREQ 03-19 09:39 → PCU 3S 03-19 10:33 → ORTHO 4S 03-23 04:30
PROVIDERS: ADMIT Family Medicine; ATTEND Family Medicine
PROC: BQ2 Imaging, Non-Axial Lower Bones, Computerized Tomography (CT Scan) (ICD-10-PCS; principal; 2023-03-17)
PROC: B32T1ZZ Computerized Tomography (CT Scan) of Left Pulmonary Artery using Low Osmolar Contrast (ICD-10-PCS; 2023-03-21)
PROC: B3201ZZ Computerized Tomography (CT Scan) of Thoracic Aorta using Low Osmolar Contrast (ICD-10-PCS; 2023-03-21)
PROC: B32S1ZZ Computerized Tomography (CT Scan) of Right Pulmonary Artery using Low Osmolar Contrast (ICD-10-PCS; 2023-03-21)
DX: A41.9 Sepsis, unspecified organism (principal); E11.00 Type 2 diabetes mellitus with hyperosmolarity without nonketotic hyperglycemic-hyperosmolar coma (NKHHC); E43 Unspecified severe protein-calorie malnutrition; J12.82 Pneumonia due to coronavirus disease 2019; N17.0 Acute kidney failure with tubular necrosis; U07.1 COVID-19; J96.00 Acute respiratory failure, unspecified whether with hypoxia or hypercapnia; L03.115 Cellulitis of right lower limb; M86.8X7 Other osteomyelitis, ankle and foot; E11.52 Type 2 diabetes mellitus with diabetic peripheral angiopathy with gangrene; M00.9 Pyogenic arthritis, unspecified; E87.1 Hypo-osmolality and hyponatremia; D64.9 Anemia, unspecified; E11.40 Type 2 diabetes mellitus with diabetic neuropathy, unspecified; E11.621 Type 2 diabetes mellitus with foot ulcer; L97.519 Non-pressure chronic ulcer of other part of right foot with unspecified severity; E11.69 Type 2 diabetes mellitus with other specified complication; E78.5 Hyperlipidemia, unspecified; Z89.512 Acquired absence of left leg below knee; Z79.4 Long term (current) use of insulin; Z68.27 Body mass index [BMI] 27.0-27.9, adult; Z79.899 Other long term (current) drug therapy
CPT/HCPCS: 36415; 71045; 71275; 73630; 73701; 80048; 80053; 80061; 80202; 81001; 82948; 83036; 83605; 83615; 83735; 83930; 84100; 84145; 84443; 85025; 85379; 85610; 85651; 86140; 87040; 87070; 87075; 87077; 87186; 87502; 87503; 87811; 90715; 93005; 93922; 93970; 97110; 97161; 97530; 99285; A4615; A4620; A6213; A6258; A6446; A6449; G0378; J1644; J1815; J2405; J2543; J3370; J3490; J7030; J7040; J8540; Q9967

== ENCOUNTER 2023-05-07 10:40 | Day surgery (SDC) | payer MEDICARE, MEDICAID ==
[2023-05-07] VITALS (12 sets, daily range): BP systolic 122–173; BP diastolic 64–91; PULSE 90–116; RESP 15–19; TEMP 96.9; O2SAT 96–99
[~2023-05-07] VITALS: Ht 182.9 cm; Wt 80.0 kg
[2023-05-07] MEDS: cefazolin 2gm/D5W 100mL 100 ML IV ONE (05:30)
[2023-05-07] MEDS: DOCUMENT DATE & TIME OF BETA-BLOCKER PO ONE (05:30)
[~2023-05-07 10:40] MED LIST changes: +ACET-890 PO; +BISA-155 PO; +BISA10SU97 RC; +CHOL100017 PO; +FERR-39 PO; +HYDR-3965 PO; +INSU100I31 SQ; -IRON; +LACTC PO; +MAGN400O6 PO; +METO-395 PO; +MULT-1085 PO; +NA P230E RC; +OMEP40CA21 PO; +ONDA-103 PO; -VITAMIN D; +VITC500T PO
[2023-05-07] MEDS: famotidine 20mg tablet PO ONE (11:27)
[2023-05-07] MEDS: ringers solution, lacted 1,000 ML IV SCH (11:27)
[2023-05-07 11:52] LABS: BASOPHILS # (AUTO) 0.1 X10'3 (0-0.2); BASOPHILS % (AUTO) 1.1 % (0-1); EOSINOPHILS # (AUTO) 0.1 X10'3 (0-0.9); EOSINOPHILS % (AUTO) 1.3 % (0-6); LYMPHOCYTES # (AUTO) 1.2 X10'3 (1.1-4.8); MEAN CORPUSCULAR HEMOGLOBIN 28.6 PG (27.0-31.0); MEAN CORPUSCULAR HGB CONC 33.4 g/dL (33.0-36.5); MEAN CORPUSCULAR VOLUME 85.6 FL (78-98); MEAN PLATELET VOLUME 8.3 FL (7.4-10.4); MONOCYTES # (AUTO) 0.6 X10'3 (0-0.9); MONOCYTES % (AUTO) 5.3 % (2-12); NEUTROPHILS % (AUTO) 81.3 % (42-75); PRE OP PLATELET COUNT 387 X10'3 (140-440); RED BLOOD COUNT 4.21 X10'6 (4.70-6.10); RED CELL DISTRIBUTION WIDTH 16.6 % (11.5-14.5)
[2023-05-07 11:59] LABS: ISTAT CREATININE 1.2 mg/dL (0.8-1.3); ISTAT HGB 11.6 g/dl (14.0-17.9); ISTAT IONIZED CALCIUM 1.15 mmol/L (1.03-1.32); ISTAT K 4.9 mmol/L (3.5-5.1); POC BUN/CREATININE RATIO 31.7 (5.4-32.0)
[2023-05-07 12:05] LABS: ALBUMIN 2.7 G/DL (3.4-5.0); ALBUMIN/GLOBULIN RATIO 0.5 (1.1-1.5); ALKALINE PHOSPHATASE 145 IU/L (46-116); BLOOD UREA NITROGEN 43 MG/DL (7-18); BUN/CREATININE RATIO 33.6 (10.0-20.0); CALCIUM 9.2 MG/DL (8.5-10.1); CHLORIDE 101 MMOL/L (99-107); CREATININE 1.28 MG/DL (0.60-1.10); PRE OP ALT 43 U/L (30-65); PRE OP ANION GAP 6 (8-16); PRE OP AST 49 U/L (10-37); PRE OP BILIRUB, TOTAL 0.3 MG/DL (0.0-1.0); PRE OP GLUCOSE 148 MG/DL (70-104); PRE OP POTASSIUM 4.5 MMOL/L (3.4-5.1); PRE OP SODIUM 141 MMOL/L (135-145); TOTAL CARBON DIOXIDE 34.2 MMOL/L (24-32); TOTAL PROTEIN 8.5 G/DL (6.4-8.2); eCRCL 78 ML/MIN; eGFR 60 ML/MIN
[2023-05-07] MEDS ORDERED: fentaNYL/PF 50MCG/1 ML 2ML syringe ONE (12:08)
[2023-05-07] MEDS ORDERED: MIDAZolam 1 MG/ML 5ML VIAL ONE (12:08)
[2023-05-07] MEDS ORDERED: BUPIVAcaine/PF 7.5mg/ml (0.75%) 10ml vial ONE ×2 (12:25→12:43)
[2023-05-07] MEDS ORDERED: tobramycin sulfate 1.2gm vial ONE (12:40)
[2023-05-07] MEDS ORDERED: vancomycin 1,000mg inj ONE (12:40)
[2023-05-07] MEDS ORDERED: ROPIVAcaine 0.5% (5mg/ml) 30ml vial ONE (12:43)
[2023-05-07] MEDS ORDERED: morphine 4 MG/ML inj SYRINge IV PRN (12:50)
[2023-05-07] MEDS ORDERED: morphine 2 MG/ML inj. syringe IV PRN (12:50)
[2023-05-07] MEDS ORDERED: labetalol 20mg/4ml (5mg/ml) syringe IV PRN (12:50)
[2023-05-07] MEDS ORDERED: ondansetron/PF 4mg/2ml inj IV PRN (12:50)
[2023-05-07] MEDS ORDERED: proCHLORperazine 10 MG/2 ml inj IV PRN (12:50)
[2023-05-07] MEDS ORDERED: enalaprilat dihydrate 2.5mg/2ml vial IV PRN (12:50)
[2023-05-07] MEDS ORDERED: meperidine/PF 25mg/ml syringe IV PRN ×3 (12:50)
[2023-05-07] MEDS ORDERED: ringers solution, lacted 1,000 ML IV SCH (12:50)
[2023-05-07] MEDS: tobramycin sulfate 1.2gm vial TP ONE (12:55)
== END 2023-05-07 15:15 ==
LOC: PAS 10:40
PROVIDERS: ATTEND Podiatrist Foot & Ankle Surgery
DX: M86.8X7 Other osteomyelitis, ankle and foot (principal); G89.18 Other acute postprocedural pain; I12.9 Hypertensive chronic kidney disease with stage 1 through stage 4 chronic kidney disease, or unspecified chronic kidney disease; E11.22 Type 2 diabetes mellitus with diabetic chronic kidney disease; N18.30 Chronic kidney disease, stage 3 unspecified; E78.5 Hyperlipidemia, unspecified; G47.33 Obstructive sleep apnea (adult) (pediatric); K21.9 Gastro-esophageal reflux disease without esophagitis; I25.2 Old myocardial infarction; I20.9 Angina pectoris, unspecified; M19.90 Unspecified osteoarthritis, unspecified site; Z79.84 Long term (current) use of oral hypoglycemic drugs; Z79.891 Long term (current) use of opiate analgesic; Z79.899 Other long term (current) drug therapy; Z98.890 Other specified postprocedural states
CPT/HCPCS: 28820; 36415; 64445; 73620; 80047; 80053; 82948; 85025; A6223; C1713; J0690; J2250; J2795; J3010; J3260; J3370; J3490; J7030; J7120; Z7506; Z7508; Z7512; 76000; A4618; A6253; A6449; A7000

== ENCOUNTER 2024-04-20 09:55 | Inpatient (IN) | payer MEDICARE, MEDICAID ==
[~2024-04-20] VITALS: Ht 182.9 cm; Wt 77.7 kg
[~2024-04-20 09:55] MED LIST changes: +ATOR-429 PO; -ATOR80TA PO
[2024-04-20 10:54] LABS: BASOPHILS # (AUTO) 0.1 X10'3 (0-0.2); BASOPHILS % (AUTO) 1.8 % (0-1); EOSINOPHILS # (AUTO) 0.2 X10'3 (0-0.9); EOSINOPHILS % (AUTO) 2.8 % (0-6); HEMATOCRIT 32.3 % (42.0-52.0); LYMPHOCYTES # (AUTO) 1.3 X10'3 (1.1-4.8); LYMPHOCYTES % (AUTO) 19.6 % (21-51); MEAN CORPUSCULAR HEMOGLOBIN 28.6 PG (27.0-31.0); MEAN CORPUSCULAR HGB CONC 33.9 g/dL (33.0-36.5); MEAN CORPUSCULAR VOLUME 84.5 FL (78-98); MEAN PLATELET VOLUME 8.1 FL (7.4-10.4); MONOCYTES # (AUTO) 0.4 X10'3 (0-0.9); MONOCYTES % (AUTO) 6.1 % (2-12); NEUTROPHILS # (AUTO) 4.7 X10'3 (1.8-7.7); NEUTROPHILS % (AUTO) 69.7 % (42-75); PLATELET COUNT 315 X10'3 (140-440); RED BLOOD COUNT 3.83 X10'6 (4.70-6.10); RED CELL DISTRIBUTION WIDTH 13.4 % (11.5-14.5); WHITE BLOOD COUNT 6.7 X10'3 (4.5-11.0)
[2024-04-20 11:04] LABS: ALBUMIN 2.2 G/DL (3.4-5.0); ANION GAP 2 (8-16); BLOOD UREA NITROGEN 26 MG/DL (7-18); BUN/CREATININE RATIO 17.6 (10.0-20.0); CALCIUM 8.7 MG/DL (8.5-10.1); CHLORIDE 101 MMOL/L (99-107); CREATININE 1.48 MG/DL (0.60-1.10); GLUCOSE 367 MG/DL (70-104); POTASSIUM 4.4 MMOL/L (3.5-5.1); SODIUM 137 MMOL/L (135-145); TOTAL CARBON DIOXIDE 33.8 MMOL/L (24-32); eCRCL 67 ML/MIN; eGFR 51 ML/MIN
[2024-04-20 11:12] LABS: APTT 29 SECONDS (22-32); PROTHROMBIN TIME 10.3 SECONDS (9.0-12.0)
[2024-04-20] MEDS ORDERED: iohexol 350MG/ML 100ml bottle IV ONE (12:23)
[2024-04-20] MEDS ORDERED: pantoprazole 40MG/NS 100ML BAG 100 ML IV ONE (12:50)
[2024-04-20] MEDS ORDERED: octreotide 100mcg/1 ml ampule IV ONE (12:50)
[2024-04-20] MEDS ORDERED: pantoprazole 40mg IV 80 MG in normal saline 100ml IV soln 100 ML IV ONE (12:50)
[2024-04-20] MEDS: octreotide inj. 500 MCG in normal saline 100ml IV soln 97.5 ML IV SCH (12:50)
[2024-04-20] MEDS ORDERED: pantoprazole 40 MG vial IV ONE (13:00)
[2024-04-20] MEDS ORDERED: mag hydrox/Alum hydrox/simeth 30ml oral suspension PO PRN (13:55)
[2024-04-20] MEDS ORDERED: magnesium sulf-water 2g/50mL 50 ML IV PRN (13:55)
[2024-04-20] MEDS ORDERED: magnesium sulf-water 4G/100mL 100 ML IV PRN (13:55)
[2024-04-20] MEDS ORDERED: potassium Cl 40MEQ/1/2NS 520ml 520 ML IV PRN (13:55)
[2024-04-20] MEDS ORDERED: magnesium hydroxide 30ml (MOM) UD suspension PO PRN (13:55)
[2024-04-20] MEDS ORDERED: magnesium Cl slow-release 64mg tablet PO PRN (13:55)
[2024-04-20] MEDS ORDERED: potassium Cl 20 mEq SR tablet PO PRN (13:55)
[2024-04-20] MEDS ORDERED: acetaminophen 325mg tablet PO PRN (13:55)
[2024-04-20] MEDS: aspirin 81mg tab.chew PO ONE (14:05)
[2024-04-20] MEDS: clopidogrel 300mg tablet PO ONE (14:06)
[2024-04-20] MEDS ORDERED: glucagon, human recombinant 1mg kit SUBCUT PRN (14:50)
[2024-04-20] MEDS ORDERED: dextrose 50%-water 50ml dispensing syringe IV PRN (14:50)
[2024-04-20] MEDS ORDERED: DEXTROSE 15 GM of carb/4 tabs (each vial/BOTTLE has 4 tablets) PO PRN ×2 (14:50)
[2024-04-20 15:17] LABS: BILIRUBIN,URINE NEGATIVE (Neg); CLARITY,URINE CLEAR (Clear); COLOR,URINE YELLOW (Yellow); GLUCOSE, URINE >=1000 mg/dl (Neg); KETONES,URINE NEGATIVE (Neg); LEUKOCYTE ESTERASE ,URINE NEGATIVE (Neg); NITRITES, URINE NEGATIVE (Neg); OCCULT BLOOD,URINE MODERATE (Neg); PH,URINE 6.5 (4.8-8.0); PROTEIN,URINE >=300 mg/dl (Neg); UROBILINOGEN,URINE 0.2 E.U/dL (0.2-1.0)
[2024-04-20 15:18] LABS: UA COLLECTION TYPE NON-SPECIFIED
[2024-04-20 15:33] LABS: BACTERIA,URINE NONE SEEN /HPF (Neg); MUCUS STRANDS FEW /LPF (Neg); SQUAMOUS EPITHELIAL CELL,UR FEW /LPF (FEW); WBC,URINE 0-4 /HPF (0-4)
[2024-04-20] MEDS: INSULIN LISPRO 100 UNIT/ML INSULN.PEN MULTI-DOSE SQ SCH (17:00)
[2024-04-20] MEDS ORDERED: labetalol 20mg/4ml (5mg/ml) syringe IV PRN (19:40)
[2024-04-20] MEDS: PERFLUTREN PROTEIN-A MICROSPHR (Optison) 0.22 MG/ML 3ML VIAL IV ONE (19:41)
[2024-04-20] MEDS: K and/or MAG REPLACEMENT MC SCH (19:41)
[2024-04-20] MEDS: docusate sod 100mg capsule PO SCH (19:42)
[2024-04-20] MEDS ORDERED: atorvastatin 20mg tablet PO SCH (21:00)
[2024-04-20 21:10] VITALS: BP 149/90; PULSE 107; RESP 20; O2SAT 98
[2024-04-20] MEDS: atorvastatin 20mg tablet PO SCH (22:33)
[2024-04-20] MEDS: insulin glargine (Lantus) pen - multi-dose SQ SCH (22:42)
[2024-04-21 02:00] VITALS: BP 152/103; PULSE 92; RESP 18; TEMP 98; O2SAT 97
[2024-04-21 06:32] VITALS: BP 154/86; PULSE 98; RESP 20; TEMP 97.8; O2SAT 97
[2024-04-21 06:32] LABS: CHOL/HDL RATIO 7.1 (0.00-4.99); CHOLESTEROL 318 MG/DL (0-200); HDL CHOLESTEROL 45 MG/DL (35-60); LDL CHOLESTEROL 228 MG/DL (50-100); MAGNESIUM 1.8 MG/DL (1.5-2.4); TRIGLYCERIDES 137 MG/DL (20-135)
[2024-04-21 06:41] LABS: HEMOGLOBIN A1C 10.8 % (4.5-6.2)
[2024-04-21] MEDS: clopidogrel 75mg tablet PO SCH (07:16)
[2024-04-21] MEDS: aspirin 81mg, enteric-coated 1 TAB TABLET.DR PO SCH (07:16)
[2024-04-21 08:00] VITALS: RESP 15; O2SAT 97
[2024-04-21 08:52] LABS: BASOPHILS # (AUTO) 0.1 X10'3 (0-0.2); BASOPHILS % (AUTO) 2.2 % (0-1); EOSINOPHILS # (AUTO) 0.2 X10'3 (0-0.9); EOSINOPHILS % (AUTO) 3.4 % (0-6); HEMATOCRIT 31.8 % (42.0-52.0); HEMOGLOBIN 10.7 g/dl (14.0-17.9); LYMPHOCYTES # (AUTO) 1.5 X10'3 (1.1-4.8); LYMPHOCYTES % (AUTO) 23.5 % (21-51); MEAN CORPUSCULAR HEMOGLOBIN 28.4 PG (27.0-31.0); MEAN CORPUSCULAR HGB CONC 33.7 g/dL (33.0-36.5); MEAN CORPUSCULAR VOLUME 84.2 FL (78-98); MEAN PLATELET VOLUME 8.4 FL (7.4-10.4); MONOCYTES # (AUTO) 0.5 X10'3 (0-0.9); NEUTROPHILS # (AUTO) 4.2 X10'3 (1.8-7.7); NEUTROPHILS % (AUTO) 63.9 % (42-75); PLATELET COUNT 329 X10'3 (140-440); RED BLOOD COUNT 3.78 X10'6 (4.70-6.10); RED CELL DISTRIBUTION WIDTH 13.4 % (11.5-14.5); WHITE BLOOD COUNT 6.6 X10'3 (4.5-11.0)
[2024-04-21 09:01] LABS: ALANINE AMINOTRANSFERASE 24 U/L (12-78); ALBUMIN/GLOBULIN RATIO 0.4 (1.1-1.5); ALKALINE PHOSPHATASE 103 IU/L (46-116); ANION GAP 4 (8-16); ASPARTATE AMINO TRANSFERASE 34 U/L (10-37); BILIRUBIN,TOTAL 0.2 MG/DL (0.1-1.0); BLOOD UREA NITROGEN 24 MG/DL (7-18); BUN/CREATININE RATIO 17.6 (10.0-20.0); CALCIUM 8.6 MG/DL (8.5-10.1); CHLORIDE 104 MMOL/L (99-107); CREATININE 1.36 MG/DL (0.60-1.10); GLUCOSE 75 MG/DL (70-104); POTASSIUM 3.9 MMOL/L (3.5-5.1); SODIUM 140 MMOL/L (135-145); TOTAL CARBON DIOXIDE 31.9 MMOL/L (24-32); TOTAL PROTEIN 6.6 G/DL (6.4-8.2); eCRCL 73 ML/MIN; eGFR 56 ML/MIN
[2024-04-21 10:31] VITALS: BP 164/97; PULSE 93; RESP 16; TEMP 97.1; O2SAT 98
[2024-04-21] MEDS: ezetimibe 10mg tablet PO SCH (10:34)
[2024-04-21] MEDS: normal saline 1000ml 1,000 ML IV SCH (17:00)
[2024-04-21 18:00] VITALS: BP 162/98; PULSE 95; RESP 16; TEMP 97.2; O2SAT 98
[2024-04-21 22:00] VITALS: BP 164/100; PULSE 104; RESP 17; TEMP 98.1; O2SAT 95
[2024-04-22 06:00] VITALS: BP 140/75; PULSE 98; RESP 16; TEMP 97.5; O2SAT 97
[2024-04-22 06:22] LABS: BASOPHILS # (AUTO) 0.1 X10'3 (0-0.2); BASOPHILS % (AUTO) 1.7 % (0-1); EOSINOPHILS # (AUTO) 0.2 X10'3 (0-0.9); EOSINOPHILS % (AUTO) 3.3 % (0-6); HEMATOCRIT 29.4 % (42.0-52.0); HEMOGLOBIN 10.1 g/dl (14.0-17.9); LYMPHOCYTES # (AUTO) 1.6 X10'3 (1.1-4.8); LYMPHOCYTES % (AUTO) 24.7 % (21-51); MEAN CORPUSCULAR HGB CONC 34.5 g/dL (33.0-36.5); MEAN CORPUSCULAR VOLUME 84.2 FL (78-98); MEAN PLATELET VOLUME 8.2 FL (7.4-10.4); MONOCYTES # (AUTO) 0.5 X10'3 (0-0.9); MONOCYTES % (AUTO) 7.2 % (2-12); NEUTROPHILS % (AUTO) 63.1 % (42-75); PLATELET COUNT 303 X10'3 (140-440); RED BLOOD COUNT 3.49 X10'6 (4.70-6.10); WHITE BLOOD COUNT 6.3 X10'3 (4.5-11.0)
[2024-04-22 06:32] LABS: ALANINE AMINOTRANSFERASE 14 U/L (12-78); ALBUMIN 1.8 G/DL (3.4-5.0); ALBUMIN/GLOBULIN RATIO 0.4 (1.1-1.5); ALKALINE PHOSPHATASE 96 IU/L (46-116); ANION GAP 5 (8-16); ASPARTATE AMINO TRANSFERASE 30 U/L (10-37); BILIRUBIN,TOTAL 0.1 MG/DL (0.1-1.0); BLOOD UREA NITROGEN 26 MG/DL (7-18); BUN/CREATININE RATIO 17.1 (10.0-20.0); CALCIUM 8.2 MG/DL (8.5-10.1); CHLORIDE 107 MMOL/L (99-107); CREATININE 1.52 MG/DL (0.60-1.10); GLUCOSE 60 MG/DL (70-104); MAGNESIUM 1.7 MG/DL (1.5-2.4); POTASSIUM 3.3 MMOL/L (3.5-5.1); SODIUM 142 MMOL/L (135-145); TOTAL PROTEIN 6.1 G/DL (6.4-8.2); eCRCL 65 ML/MIN; eGFR 49 ML/MIN
[2024-04-22] MEDS ORDERED: LANTUS SQ (07:42)
[2024-04-22] MEDS ORDERED: ASPI-1071 PO (07:42)
[2024-04-22] MEDS ORDERED: EZET10TA48 PO (07:42)
[2024-04-22] MEDS ORDERED: CLOP75TA34 PO (07:42)
[2024-04-22] MEDS: dextrose 50%-water 50ml dispensing syringe IV PRN (08:00)
[2024-04-22] MEDS ORDERED: metoprolol succinate 25mg (24-HOUR) SR. Tablet PO SCH (08:00)
[2024-04-22] MEDS: ondansetron/PF 4mg/2ml inj IV PRN (08:00)
[2024-04-22] MEDS ORDERED: METO-395 PO (08:15)
[2024-04-22 10:00] VITALS: BP 170/94; PULSE 92; RESP 16; TEMP 97.2; O2SAT 99
[2024-04-22] MEDS: potassium Cl 20 mEq SR tablet PO PRN (10:13)
[2024-04-22] MEDS ORDERED: insulin glargine (Lantus) pen - multi-dose SQ SCH (21:00)
[2024-04-23] MEDS ORDERED: LOSA50TA64 PO (11:09)
== END 2024-04-22 12:00 | disposition home or self-care (01) | DRG 65 ==
LOC: ER 09:55 → ED HOLD 13:56 → ORTHO 4S 21:16
PROVIDERS: ADMIT Nurse Practitioner Family; ATTEND Nurse Practitioner Family
PROC: B3251ZZ Computerized Tomography (CT Scan) of Bilateral Common Carotid Arteries using Low Osmolar Contrast (ICD-10-PCS; principal; 2024-04-20)
PROC: B32G1ZZ Computerized Tomography (CT Scan) of Bilateral Vertebral Arteries using Low Osmolar Contrast (ICD-10-PCS; 2024-04-20)
PROC: B32R1ZZ Computerized Tomography (CT Scan) of Intracranial Arteries using Low Osmolar Contrast (ICD-10-PCS; 2024-04-20)
PROC: B3281ZZ Computerized Tomography (CT Scan) of Bilateral Internal Carotid Arteries using Low Osmolar Contrast (ICD-10-PCS; 2024-04-20)
DX: I63.89 Other cerebral infarction (principal); I16.1 Hypertensive emergency; N17.9 Acute kidney failure, unspecified; I12.9 Hypertensive chronic kidney disease with stage 1 through stage 4 chronic kidney disease, or unspecified chronic kidney disease; N18.30 Chronic kidney disease, stage 3 unspecified; E11.22 Type 2 diabetes mellitus with diabetic chronic kidney disease; E11.65 Type 2 diabetes mellitus with hyperglycemia; E78.5 Hyperlipidemia, unspecified; E88.09 Other disorders of plasma-protein metabolism, not elsewhere classified; Z89.512 Acquired absence of left leg below knee; Z79.84 Long term (current) use of oral hypoglycemic drugs; Z79.4 Long term (current) use of insulin; Z79.82 Long term (current) use of aspirin
CPT/HCPCS: 36415; 70450; 70496; 70498; 70551; 71045; 80048; 80053; 80061; 81001; 82948; 83036; 83735; 85025; 85610; 85730; 87081; 92508; 92616; 93005; 93306; 96372; 97161; 97530; 99285; A6446; G0378; J1815; J2405; J3490; J7030; Q9967

== ENCOUNTER 2024-06-08 09:00 | Emergency (ER) | payer MEDICARE, MEDICAID ==
[~2024-06-08] VITALS: Ht 172.7 cm; Wt 77.6 kg
[~2024-06-08 09:00] MED LIST changes: +ASPI-1071 PO; +CLOP75TA34 PO; +EZET10TA48 PO; -INSU100I31 SQ; -INSU100V12 SQ; +LANTUS SQ; +LOSA50TA64 PO; -NA P230E RC; -OMEP40CA21 PO; -ONDA-103 PO
[2024-06-08 09:02] VITALS: TEMP 97.7
--- NOTE | 2024-06-08 09:21 | ELECTROCARDIOGRAPH REPORT ---
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 Gama Taylor Measurements Intervals [place] Rate: 86 P: 57 CO: 152 QRS: 58 QRSD: 96 T: 77 QT: 370 QTc: 443 Interpretive Statements Sinus rhythm Electronically Signed On 06-08-2024 20:39:[address] Gama Taylor Please click the below link to view image of tracing.
[2024-06-08 09:42] LABS: BASOPHILS # (AUTO) 0.1 X10'3 (0-0.2); BASOPHILS % (AUTO) 0.9 % (0-1); EOSINOPHILS # (AUTO) 0.1 X10'3 (0-0.9); EOSINOPHILS % (AUTO) 1.2 % (0-6); HEMOGLOBIN 10.9 g/dl (14.0-17.9); MEAN CORPUSCULAR HEMOGLOBIN 29.2 PG (27.0-31.0); MEAN CORPUSCULAR VOLUME 83.4 FL (78-98); MEAN PLATELET VOLUME 8.3 FL (7.4-10.4); MONOCYTES # (AUTO) 0.4 X10'3 (0-0.9); MONOCYTES % (AUTO) 4.9 % (2-12); NEUTROPHILS # (AUTO) 7.4 X10'3 (1.8-7.7); PLATELET COUNT 333 X10'3 (140-440); RED BLOOD COUNT 3.71 X10'6 (4.70-6.10); RED CELL DISTRIBUTION WIDTH 13.7 % (11.5-14.5)
[2024-06-08 09:54] LABS: ALANINE AMINOTRANSFERASE 28 U/L (12-78); ALBUMIN 2.2 G/DL (3.4-5.0); ALBUMIN/GLOBULIN RATIO 0.5 (1.1-1.5); ALKALINE PHOSPHATASE 115 IU/L (46-116); ANION GAP 3 (8-16); ASPARTATE AMINO TRANSFERASE 37 U/L (10-37); BLOOD UREA NITROGEN 26 MG/DL (7-18); BUN/CREATININE RATIO 16.9 (10.0-20.0); CALCIUM 8.8 MG/DL (8.5-10.1); CHLORIDE 107 MMOL/L (99-107); CREATININE 1.54 MG/DL (0.60-1.10); GLUCOSE 91 MG/DL (70-104); MAGNESIUM 2.1 MG/DL (1.5-2.4); POTASSIUM 3.8 MMOL/L (3.5-5.1); SODIUM 145 MMOL/L (135-145); TOTAL CARBON DIOXIDE 34.8 MMOL/L (24-32); TOTAL PROTEIN 6.3 G/DL (6.4-8.2); eCRCL 56 ML/MIN; eGFR 48 ML/MIN
[2024-06-08 09:57] LABS: BILIRUBIN,TOTAL 0.1 MG/DL (0.1-1.0)
[2024-06-08 10:32] VITALS: BP 161/99; PULSE 88; RESP 16; O2SAT 99
--- NOTE | 2024-06-08 10:42 | Physician Documentation ---
History of Present Illness ~ Chief Complaint: Hypoglycemia Stated Complaint: BLOOD SUGAR COMP Time Seen by MD: 09:12 Primary Medical Doctor: Jarrod Cummings MD Mode of Arrival: POV HPI 49-year-old male presenting for low blood sugars. Patient states that he took is insulin this morning. He is type 2 diabetic and is on two types of insulin. He states that he took about 40 units of one and 10 units of another. He had four pancakes and then went to the wound clinic to get one of his wounds assessed. Over there he became very lethargic and had a syncopal episode. He also vomited several times and was sent to the emergency department. The patient states he currently feels well. He has the longer dizzy and no longer has a headache. He also has no longer nauseated. Medication Reconciliation Allergies: Coded Allergies: No Known Allergies (Unverified , 06/30/16) Scheduled Ascorbic Acid* (Vitamin C*), 1 TAB PO BID, (Reported) Aspirin (Ecotrin*), 1 TAB PO DAILY Atorvastatin Calcium* (Lipitor*), 1 TABLET PO HS, (Reported) Cholecalciferol (Vitamin D3) (Vitamin D3), 1 TAB PO DAILY, (Reported) Clopidogrel Bisulfate (Clopidogrel), 75 MG PO DAILY Empagliflozin (Jardiance), 2 TAB PO DAILY, (Reported) Ezetimibe (Ezetimibe), 10 MG PO DAILY Ferrous Sulfate (Ferrous Sulfate), 1 TAB PO Q12H, (Reported) Insulin Glargine,Hum.rec.anlog* (Lantus*), 15 UNIT SQ HS Insulin Lispro (Humalog), 10 UNITS SQ TIDWM, (Reported) Lactobacillus Acidophilus (ACIDOPHILUS capsule), 1 CAP PO DAILY, (Reported) Losartan Potassium (Losartan Potassium), 2 TAB PO DAILY Metformin HCl (Metformin HCl), 1 TAB PO Q12H, (Reported) Metoprolol Succinate (Metoprolol Succinate), 1 TAB PO DAILY Multivitamin (Multi Vitamin Daily), 1 TAB PO DAILY, (Reported) Scheduled PRN Acetaminophen (Tylenol), 2 TAB PO Q6H PRN for pain or fever, (Reported) Bisacodyl (Dulcolax), 2 TAB PO DAILY PRN for constipation, (Reported) Bisacodyl (Laxative Suppository), 1 SUPP RC Q24H PRN for constipation, (Reported) Hydrocodone Bit/Acetaminophen 5/325 MG ([place] 5/325 MG), 1-2 TAB PO Q4HPRN PRN for pain, (Reported) Magnesium Hydroxide (Milk of Magnesia), 30 ML PO Q24H PRN for constipation, (Reported) Past Medical History Past Medical History: Diabetes, *MUSCULOSKELETAL*, Extremity Fracture Past Surgical History: orthopedic surgeries Patient History: Patient reports no known family medical history. Alcohol Use: None Drug Use: none Lives with: Family Lives In: Home Review of Systems All Other Systems at this time: Reviewed and Negative Physical Exam Vital Signs: Temperature: 97.7, Source: Oral, Heart Rate: 88, Respiratory Rate: 16, BP: 161/99, Pulse Oximetry: 99, Weight: 77.600 Oxygen Flow Rate: 0 Physical Exam I have reviewed the triage vitals. CONST: Well developed and well nourished. In no acute distress HENT: Head Atraumatic EYES: Pupils are equal, round and reactive to light. Normal conjunctiva NECK: Normal range of motion. Supple. CARDIO: Normal rate and regular rhythm. No murmurs, rubs, or gallops. S1, S2. PULM/CHEST: No respiratory distress. Lungs clear to auscultation. No wheeze ABD: Soft and nontender. Nondistended. Bowel sounds normal. No guarding. 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 NEURO: Alert and oriented to person, place and time. Moving all extremities SKIN: Warm and dry. Slightly pale PSYCH: Normal mood and affect. Good eye contact. Progress Results/Orders Results/Orders Completed Orders - SHRUTHI MARIE MD Electrocardiogram (06/08/24 09:12) Cbc/Diff (06/08/24 09:12) MG (06/08/24 09:12) CMP (06/08/24 09:12) Vital Signs 06/08/24 06/08/24 06/08/24 09:02 10:32 10:32 Temp 97.7 Pulse 87 88 Resp 16 16 16 B/P (MAP) 158/83 161/99 (119) Pulse Ox 96 99 O2 Flow Rate 0 Laboratory Tests Test 06/08/24 09:05 06/08/24 09:28 06/08/24 09:29 Glucometer 86 99 White Blood Count 9.0 Red Blood Count 3.71 L Hemoglobin 10.9 L Hematocrit 31.0 L Mean Corpuscular Volume 83.4 Mean Corpuscular Hemoglobin 29.2 Mean Corpuscular Hemoglobin Concent 35.0 Red Cell Distribution Width 13.7 Platelet Count 333 Mean Platelet Volume 8.3 Neutrophils (%) (Auto) 82.0 H Lymphocytes (%) (Auto) 11.0 L Monocytes (%) (Auto) 4.9 Eosinophils (%) (Auto) 1.2 Basophils (%) (Auto) 0.9 Neutrophils # (Auto) 7.4 Lymphocytes # (Auto) 1.0 L Monocytes # (Auto) 0.4 Eosinophils # (Auto) 0.1 Basophils # (Auto) 0.1 CBC Comment Sodium Level 145 Potassium Level 3.8 Chloride Level 107 Carbon Dioxide Level 34.8 H Anion Gap 3 L Blood Urea Nitrogen 26 H Creatinine 1.54 H Estimated GFR/1.73 m2 48 BUN/Creatinine Ratio 16.9 Glucose Level 91 Calcium Level 8.8 Magnesium Level 2.1 Total Bilirubin 0.1 Aspartate Amino Transf (AST/SGOT) 37 Alanine Aminotransferase (ALT/SGPT) 28 Alkaline Phosphatase 115 Total Protein 6.3 L Albumin 2.2 L Globulin 4.1 Albumin/Globulin Ratio 0.5 L Chemistry Comments Medical Decision Making Additional Comment 49-year-old male presenting with acute hypoglycemia. Here in the ED his blood sugar is normal. His lab workup is at his baseline with no remarkable findings. Patient was monitored in the ED and had no further hypoglycemic episodes. I advised the patient that he needs to eat properly especially when he takes his insulin. I advised him to cut back on his insulin dose by 5 units for now until he is able to follow up with his primary care physician. Return to the ED with any acutely worsening symptoms. Departure Disposition: 01 HOME / SELF CARE / HOMELESS Impression: Primary Impression: Hypoglycemia Discharge Instructions: Hypoglycemia, [id number] Referrals: NO PRIMARY CARE PROVIDER (PCP) Comments Ensure that you are eating properly especially after you take your insulin. Decrease your insulin dose by 5 units. Follow up very closely with your primary care physician over the next 1-2 days. Return to the ED with any acutely worsening symptoms. SHRUTHI MARIE MD June 08, 2024 10:42
== END 2024-06-08 11:05 | disposition home or self-care (01) ==
LOC: ER 09:00
DX: E11.649 Type 2 diabetes mellitus with hypoglycemia without coma (principal); Z79.899 Other long term (current) drug therapy; Z79.82 Long term (current) use of aspirin; Z98.890 Other specified postprocedural states
CPT/HCPCS: 36415; 80053; 82948; 83735; 85025; 93005; 99284

== ENCOUNTER 2024-07-31 06:08 | Emergency (ER) | payer MEDICARE, MEDICAID ==
[~2024-07-31] VITALS: Ht 182.9 cm; Wt 80.0 kg
[2024-07-31 06:58] LABS: ALBUMIN 2.1 G/DL (3.4-5.0); ANION GAP 2 (8-16); BLOOD UREA NITROGEN 31 MG/DL (7-18); BUN/CREATININE RATIO 16.8 (10.0-20.0); CALCIUM 8.2 MG/DL (8.5-10.1); CHLORIDE 103 MMOL/L (99-107); CREATININE 1.85 MG/DL (0.60-1.10); GLUCOSE 270 MG/DL (70-104); POTASSIUM 4.2 MMOL/L (3.5-5.1); SODIUM 136 MMOL/L (135-145); TOTAL CARBON DIOXIDE 31.1 MMOL/L (24-32); eCRCL 53 ML/MIN; eGFR 39 ML/MIN
[2024-07-31 06:59] LABS: BASOPHILS # (AUTO) 0.1 X10'3 (0-0.2); BASOPHILS % (AUTO) 1.9 % (0-1); EOSINOPHILS # (AUTO) 0.2 X10'3 (0-0.9); HEMATOCRIT 30.8 % (42.0-52.0); HEMOGLOBIN 10.5 g/dl (14.0-17.9); LYMPHOCYTES # (AUTO) 1.4 X10'3 (1.1-4.8); LYMPHOCYTES % (AUTO) 24.3 % (21-51); MEAN CORPUSCULAR HEMOGLOBIN 28.5 PG (27.0-31.0); MEAN CORPUSCULAR HGB CONC 34.2 g/dL (33.0-36.5); MEAN CORPUSCULAR VOLUME 83.3 FL (78-98); MEAN PLATELET VOLUME 8.2 FL (7.4-10.4); MONOCYTES # (AUTO) 0.4 X10'3 (0-0.9); MONOCYTES % (AUTO) 6.4 % (2-12); NEUTROPHILS # (AUTO) 3.7 X10'3 (1.8-7.7); NEUTROPHILS % (AUTO) 63.4 % (42-75); PLATELET COUNT 272 X10'3 (140-440); RED CELL DISTRIBUTION WIDTH 13.2 % (11.5-14.5); WHITE BLOOD COUNT 5.9 X10'3 (4.5-11.0)
--- NOTE | 2024-07-31 08:54 | Physician Documentation ---
History of Present Illness ~ Chief Complaint: Hypertension Stated Complaint: HIGH BP Time Seen by MD: 08:47 Primary Medical Doctor: Jarrod Cummings MD HPI 49-year-old male presenting with elevated blood pressure. Patient states that last night he had a severe headache which was mainly located around his right eye. He states that he did not take any medication for it and it kind of resolved on its own. This morning when he woke up and checked his blood pressure was very elevated. He is on metoprolol and lisinopril for his blood pressure. He states that he took his doses this morning. Currently he states that he is symptom free. Denies any chest pain, shortness of breath or any other associated symptoms. Medication Reconciliation Allergies: Coded Allergies: No Known Allergies (Unverified , 06/30/16) Scheduled Ascorbic Acid* (Vitamin C*), 1 TAB PO BID, (Reported) Aspirin (Ecotrin*), 1 TAB PO DAILY Atorvastatin Calcium* (Lipitor*), 1 TABLET PO HS, (Reported) Cholecalciferol (Vitamin D3) (Vitamin D3), 1 TAB PO DAILY, (Reported) Clopidogrel Bisulfate (Clopidogrel), 75 MG PO DAILY Empagliflozin (Jardiance), 2 TAB PO DAILY, (Reported) Ezetimibe (Ezetimibe), 10 MG PO DAILY Ferrous Sulfate (Ferrous Sulfate), 1 TAB PO Q12H, (Reported) Insulin Glargine,Hum.rec.anlog* (Lantus*), 15 UNIT SQ HS Insulin Lispro (Humalog), 10 UNITS SQ TIDWM, (Reported) Lactobacillus Acidophilus (ACIDOPHILUS capsule), 1 CAP PO DAILY, (Reported) Losartan Potassium (Losartan Potassium), 2 TAB PO DAILY Metformin HCl (Metformin HCl), 1 TAB PO Q12H, (Reported) Metoprolol Succinate (Metoprolol Succinate), 1 TAB PO DAILY Multivitamin (Multi Vitamin Daily), 1 TAB PO DAILY, (Reported) Scheduled PRN Acetaminophen (Tylenol), 2 TAB PO Q6H PRN for pain or fever, (Reported) Bisacodyl (Dulcolax), 2 TAB PO DAILY PRN for constipation, (Reported) Bisacodyl (Laxative Suppository), 1 SUPP RC Q24H PRN for constipation, (Reported) Hydrocodone Bit/Acetaminophen 5/325 MG ([place] 5/325 MG), 1-2 TAB PO Q4HPRN PRN for pain, (Reported) Magnesium Hydroxide (Milk of Magnesia), 30 ML PO Q24H PRN for constipation, (Reported) Past Medical History Past Medical History: Hypertension, Diabetes, *MUSCULOSKELETAL*, Extremity Fracture Past Surgical History: orthopedic surgeries Patient History: Patient reports no known family medical history. Alcohol Use: None Drug Use: none Lives with: Family Lives In: Home Physical Exam Vital Signs: Temperature: 98.6, Source: Temporal, Heart Rate: 86, Respiratory Rate: 18, BP: 188/110, Pulse Oximetry: 97, Weight: 80.000 Oxygen Flow Rate: 0 Physical Exam I have reviewed the triage vitals. CONST: Well developed and well nourished. In no acute distress HENT: Head Atraumatic EYES: Pupils are equal, round and reactive to light. Normal conjunctiva NECK: Normal range of motion. Supple. CARDIO: Normal rate and regular rhythm. No murmurs, rubs, or gallops. S1, S2. PULM/CHEST: No respiratory distress. Lungs clear to auscultation. No wheeze ABD: Soft and nontender. Nondistended. Bowel sounds normal. No guarding. : Exam deferred MSK: Left lower extremity with a prosthetic in place NEURO: Alert and oriented to person, place and time. Moving all extremities SKIN: Warm and dry. PSYCH: Normal mood and affect. Good eye contact. Progress Results/Orders Results/Orders Orders - SHRUTHI MARIE MD Electrocardiogram (07/31/24 06:20) Hs Troponin I W Calculations (07/31/24 09:22) Ct Head (07/31/24 09:15) Completed Orders - SHRUTHI MARIE MD Cbc/Diff (07/31/24 06:20) BMP (07/31/24 06:20) Hs Troponin I W Calculations (07/31/24 06:22) Hs Troponin I W Calculations (07/31/24 08:22) Ct Head (07/31/24 09:15) Clonidine Tablet (Catapres Tablet) (07/31/24 09:55) Vital Signs 07/31/24 07/31/24 07/31/24 06:18 09:41 09:41 Temp 98.6 98.6 Pulse 86 82 Resp 18 16 18 B/P (MAP) 188/110 159/93 (115) Pulse Ox 97 99 O2 Flow Rate 0 0 Laboratory Tests Test 07/31/24 06:30 07/31/24 09:18 White Blood Count 5.9 Red Blood Count 3.70 L Hemoglobin 10.5 L Hematocrit 30.8 L Mean Corpuscular Volume 83.3 Mean Corpuscular Hemoglobin 28.5 Mean Corpuscular Hemoglobin Concent 34.2 Red Cell Distribution Width 13.2 Platelet Count 272 Mean Platelet Volume 8.2 Neutrophils (%) (Auto) 63.4 Lymphocytes (%) (Auto) 24.3 Monocytes (%) (Auto) 6.4 Eosinophils (%) (Auto) 4.0 Basophils (%) (Auto) 1.9 H Neutrophils # (Auto) 3.7 Lymphocytes # (Auto) 1.4 Monocytes # (Auto) 0.4 Eosinophils # (Auto) 0.2 Basophils # (Auto) 0.1 CBC Comment Sodium Level 136 Potassium Level 4.2 Chloride Level 103 Carbon Dioxide Level 31.1 Anion Gap 2 L Blood Urea Nitrogen 31 H Creatinine 1.85 H Estimated GFR/1.73 m2 39 BUN/Creatinine Ratio 16.8 Glucose Level 270 H Calcium Level 8.2 L Troponin I High Sensitivity 18 15 Albumin 2.1 L Chemistry Comments Troponin I High Sens Percent Delta 16 Troponin I Hi Sens Absolute Change -3 EKG/XRAY/CT/US/VASC/MRI EKG : Additional Comment EKG as interpreted by me indicates normal sinus rhythm with a rate of 83 beats per minute, no ischemia, normal axis CT : Impression CLINICAL INFORMATION: Headache and hypertension. TECHNIQUE: Axial imaging was obtained through the brain without contrast. Coronal and sagittal reformatted images were obtained, reviewed, and stored. Images were reviewed in brain and bone windows. All CT scans at this medical facility are performed using dose modulation techniques as appropriate to a performed exam including the following: Automated exposure control was utilized; adjustment of the MA and/or KV according to patient size; and use of iterative reconstruction technique. CTDIvol = 59.66 mGy DLP = 1093.14 mGy-cm COMPARISON: MR MRI HEAD on DOS: 04/20/24, CT CT STROKE ALERT on DOS: 04/20/24 FINDINGS: There is no acute intracranial hemorrhage. No mass effect or midline shift. Chronic lacunar infarct in the left basal ganglia. The ventricles and sulci are within normal limits in size for age. Basal cisterns are patent. The calvarium is unremarkable. Paranasal sinuses and mastoid air cells are clear. IMPRESSION: 1. No CT evidence of acute intracranial abnormality. 2. Nonacute findings as described above. Medical Decision Making Additional Information 49-year-old male presenting with elevated blood pressures. He has a history of hypertension. Currently he is on 5 mg daily of lisinopril and 50 mg b.i.d. of metoprolol. Patient's lab work here is unremarkable. He does have elevated BUN and creatinine however this is at his baseline. Patient's head CT was unremarkable. He is currently asymptomatic. I did give him an extra 10 mg dose of his lisinopril here in the ED. Blood pressures are still elevated however they are not dangerously high. Given that he is asymptomatic in his workup is negative I believe he just needs to increase his dose of lisinopril. I did give him a 30 day prescription for lisinopril 10 mg daily and advised him to start taking 10 mg daily instead of five until he is able to follow up with his primary care physician. He was advised to continue all the rest of his medications as well. Follow up closely with primary care physician as soon as possible. Return to the ED with any acutely worsening symptoms. Departure Disposition: 01 HOME / SELF CARE / HOMELESS Impression: Primary Impression: Essential hypertension Condition: Improved Discharge Instructions: Hypertension, Adult Additional Instructions: Please increase your dose of lisinopril from 5 mg daily to 10 mg daily. I will send you a prescription for lisinopril 10 mg daily to start taking until you can follow up with her primary care physician. Continue all of your other medications as well. Monitor your blood pressure closely. Should your symptoms return return to the ED immediately. Referrals: NO PRIMARY CARE PROVIDER (PCP) Prescriptions Lisinopril (LISINOPRIL) 10 Mg Tablet 1 TAB PO DAILY for 30 Days, #30 TAB 0 Refills Prov: SHRUTHI MARIE MD 07/31/24 Signature Scribe Signature: 1 Attestation: 1 SHRUTHI MARIE MD Jul 31, 2024 08:54
--- NOTE | 2024-07-31 09:50 | RADIOLOGY REPORT ---
CLINICAL INFORMATION: Headache and hypertension. TECHNIQUE: Axial imaging was obtained through the brain without contrast. Coronal and sagittal reform atted images were obtained, reviewed, and stored. Images were reviewed in brain and bone windows. Al l CT scans at this medical facility are performed using dose modulation techniques as appropriate to a performed exam including the following: Automated exposure control was utilized; adjustment of the MA and/or KV according to patient size; and use of iterative reconstruction technique. CTDIvol = 59.6 6 mGy DLP = 1093.14 mGy-cm COMPARISON: MR MRI HEAD on DOS: 04/20/24, CT CT STROKE ALERT on DOS: 04/20/24 FINDINGS: There is no acute intracranial hemorrhage. No mass effect or midline shift. Chronic lacunar infarct in the left basal ganglia. The ventricles and sulci are within normal limits in size for age . Basal cisterns are patent. The calvarium is unremarkable. Paranasal sinuses and mastoid air cells are clear. IMPRESSION: 1. No CT evidence of acute intracranial abnormality. 2. Nonacute findings as described above.
[2024-07-31] MEDS ORDERED: cloNIDine 0.1 mg tablet PO ONE (09:55)
[2024-07-31] MEDS ORDERED: LISI10TA27 PO (11:00)
[2024-07-31] MEDS: lisinopril 10 MG tablet PO ONE (11:05)
[2024-07-31 11:08] VITALS: BP 177/104; PULSE 85; RESP 16; TEMP 98.6; O2SAT 99
--- NOTE | 2024-07-31 13:38 | ELECTROCARDIOGRAPH REPORT ---
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
== END 2024-07-31 11:16 | disposition home or self-care (01) ==
LOC: ER 06:08
DX: I10 Essential (primary) hypertension (principal); R51.9 Headache, unspecified; E11.9 Type 2 diabetes mellitus without complications; Z79.82 Long term (current) use of aspirin
CPT/HCPCS: 36415; 70450; 80048; 84484; 85025; 93005; 99284; A6402; J7030; A6449